=== PATIENT | female | born 1980 | race Caucasian/White ===

== ENCOUNTER 2018-05-24 09:47 | Emergency (ER) | payer OTHER ==
[2018-05-24 10:06] VITALS: TEMP 98.3
[2018-05-24] MEDS ORDERED: KETOROLAC 30 MG/ML 1 ML VIAL IVP STA (10:15)
[2018-05-24] MEDS ORDERED: DEXAMETHASONE SOD PHOSPHATE 10 MG/ML 1 ML VIAL IV STA (10:15)
[2018-05-24] MEDS ORDERED: SODIUM CHLORIDE 0.9% 2,000 ML IV ONE (10:15)
[2018-05-24] MEDS ORDERED: METOCLOPRAMIDE 5 MG/ML 2 ML VIAL IVP STA (10:15)
[2018-05-24] MEDS ORDERED: diphenhydrAMINE 50 MG/ML 1 ML VIAL IVP STA (10:15)
--- NOTE | 2018-05-24 10:22 | ED ---
General Adult HPI - General Chief complaint: Headache Stated complaint: migraine, vomiting Time Seen by Provider: 05/24/18 10:08 Source: patient Mode of arrival: wheelchair Limitations: no limitations - History of Present Illness Initial comments: Patient is a 37-year-old female who presents with a chief complaint of a headache. Patient states the onset was yesterday. She states she has a history of migraine headaches and that this is a typical migraine pattern for her. She felt an aura last night and her headache continued to get worse. She presents today for 10 out of 10 pain and vomiting. Patient states that she typically gets migraine headaches about 2 or 3 times a month. Patient denies any other cause of her headache including trauma, infection. She denies any loss of balance, passing out, or lightheadedness. She has a medical history of asthma, and smokes a pack a day. Review of Systems ROS Statement: Those systems with pertinent positive or pertinent negative responses have been documented in the HPI. ROS Other: All systems not noted in ROS Statement are negative. Respiratory: Reports: wheezes Neurological: Reports: headache Past Medical History Past Medical History: No Reported History History of Any Multi-Drug Resistant Organisms: None Reported Past Surgical History: No Surgical Hx Reported Past Psychological History: No Psychological Hx Reported Smoking Status: Current every day smoker Past Alcohol Use History: None Reported Past Drug Use History: None Reported General Exam Limitations: no limitations General appearance: alert, other (Patient in mild distress secondary to pain) Head exam: Present: atraumatic, normocephalic Eye exam: Present: normal appearance, PERRL, EOMI. Absent: scleral icterus ENT exam: Present: normal exam Neck exam: Present: full ROM. Absent: tenderness, meningismus, lymphadenopathy Respiratory exam: Present: wheezes, other (Patient has mild wheezes bilaterally , she has a history of asthma, she is in no respiratory distress, and states that she feels her asthma is baseline for her currently.) Cardiovascular Exam: Present: regular rate, normal rhythm GI/Abdominal exam: Present: soft, tenderness (Patient has mild tenderness to palpation in the epigastric region and suprapubic region.). Absent: distended, guarding, pulsatile mass Rectal exam: Present: deferred Extremities exam: Present: normal inspection Back exam: Present: normal inspection Neurological exam: Present: alert, oriented X3 Psychiatric exam: Present: normal affect, normal mood Skin exam: Present: warm, dry, intact Course Vital Signs 05/24/18 10:02 Temperature 98.3 F Pulse Rate 114 H Respiratory 22 Rate Blood Pressure 126/74 O2 Sat by Pulse 98 Oximetry Medical Decision Making - Medical Decision Making Patient presents with chief complaint of a headache. On initial evaluation, vital signs are stable patient is mildly tachycardic. Patient is otherwise in no distress. Patient states that she is having a typical migraine, she denies other causes of headache. Patient is neurologically intact and able to ambulate without assistance. Patient to be treated with Toradol, Reglan, Benadryl, Decadron, and IV fluids. Basic labs will be checked including liver profile and lipase, and test. 12:32 PM On reevaluation, the patient states that her headache has resolved. Patient will get the remainder of her IV fluids and is stable for discharge. Patient instructed to follow up with primary care 1-2 days, return to the emergency department if symptoms worsen or change. - Lab Data Result diagrams: 05/24/18 10:20 05/24/18 10:20 Lab Results 05/24/18 05/24/18 05/24/18 Range/Units 10:20 10:20 10:20 WBC 10.7 H (3.8-10.6) k/uL RBC 4.96 (3.80-5.40) m/uL Hgb 14.1 (11.4-16.0) gm/dL Hct 43.0 (34.0-46.0) % MCV 86.7 (80.0-100.0) fL MCH 28.5 (25.0-35.0) pg MCHC 32.9 (31.0-37.0) g/dL RDW 13.7 (11.5-15.5) % Plt Count 276 (150-450) k/uL Neutrophils % 76 % Lymphocytes % 17 % Monocytes % 4 % Eosinophils % 2 % Basophils % 1 % Neutrophils # 8.1 H (1.3-7.7) k/uL Lymphocytes # 1.8 (1.0-4.8) k/uL Monocytes # 0.4 (0-1.0) k/uL Eosinophils # 0.3 (0-0.7) k/uL Basophils # 0.1 (0-0.2) k/uL Sodium 144 (137-145) mmol/L Potassium 4.3 (3.5-5.1) mmol/L Chloride 107 (98-107) mmol/L Carbon Dioxide 22 (22-30) mmol/L Anion Gap 15 mmol/L BUN 10 (7-17) mg/dL Creatinine 0.57 (0.52-1.04) mg/dL Est GFR (CKD-EPI)AfAm >90 (>60 ml/min/1.73 sqM) Est GFR (CKD-EPI)NonAf >90 (>60 ml/min/1.73 sqM) Glucose 115 H (74-99) mg/dL Calcium 9.5 (8.4-10.2) mg/dL Total Bilirubin 0.3 (0.2-1.3) mg/dL AST 61 H (14-36) U/L ALT 78 H (9-52) U/L Alkaline Phosphatase 71 (38-126) U/L Total Protein 7.5 (6.3-8.2) g/dL Albumin 4.3 (3.5-5.0) g/dL Lipase 33 (23-300) U/L HCG, Qual Not Detected Urine Color Yellow Urine Appearance Cloudy H (Clear) Urine pH 5.5 (5.0-8.0) Ur Specific [place] 1.012 (1.001-1.035) Urine Protein Trace H (Negative) Urine Glucose (UA) Negative (Negative) Urine Ketones Negative (Negative) Urine Blood Negative (Negative) Urine Nitrite Negative (Negative) Urine Bilirubin Negative (Negative) Urine Urobilinogen <2.0 (<2.0) mg/dL Ur Leukocyte Esterase Large H (Negative) Urine RBC 4 (0-5) /hpf Urine WBC 14 H (0-5) /hpf Ur Squamous Epith Cells 33 H (0-4) /hpf Urine Bacteria Occasional H (None) /hpf Urine Mucus Few H (None) /hpf Disposition Clinical Impression: Migraine Disposition: HOME SELF-CARE Condition: Good Instructions: Acute Headache (ED) Is patient prescribed a controlled substance at d/c from ED?: No Referrals: Keith Boudreaux MD [Primary Care Provider] - 1-2 days
[2018-05-24 11:07] LABS: Appearance,Urine Cloudy (Clear); Bacteria,Urine Occasional /hpf; Bilirubin,Urine Negative (Negative); Blood,Urine Negative (Negative); Color,Urine Yellow; Glucose,Urine (UA) Negative (Negative); Ketones,Urine Negative (Negative); Leukocyte Esterase,Urine Large (Negative); Mucus,Urine Few /hpf; Nitrite,Urine Negative (Negative); PH, Urine 5.5 (5.0-8.0); Protein,Urine Trace (Negative); RBC,Urine 4 /hpf (0-5); Specific Gravity,Urine 1.012 (1.001-1.035); Squamous Epithelial Cell,Urine 33 /hpf (0-4); Urobilinogen,Urine <2.0 mg/dL (<2.0); WBC,Urine 14 /hpf (0-5)
[2018-05-24 11:10] LABS: Basophils # (A) 0.1 k/uL (0-0.2); Basophils % (A) 1 %; Eosinophils # (A) 0.3 k/uL (0-0.7); Eosinophils % (A) 2 %; HGB 14.1 gm/dL (11.4-16.0); Lymphocytes # (A) 1.8 k/uL (1.0-4.8); Lymphocytes % (A) 17 %; MCH 28.5 pg (25.0-35.0); MCHC 32.9 g/dL (31.0-37.0); MCV 86.7 fL (80.0-100.0); Mean Platelet Volume 6.8; Monocytes # (A) 0.4 k/uL (0-1.0); Monocytes % (A) 4 %; Neutrophils # (A) 8.1 k/uL (1.3-7.7); Neutrophils % (A) 76 %; Platelet Count 276 k/uL (150-450); RBC 4.96 m/uL (3.80-5.40); RDW 13.7 % (11.5-15.5); WBC 10.7 k/uL (3.8-10.6)
[2018-05-24 11:17] LABS: HCG,Qualitative Serum Not Detected
[2018-05-24 11:19] LABS: ALT 78 U/L (9-52); AST 61 U/L (14-36); Albumin 4.3 g/dL (3.5-5.0); Alkaline Phosphatase 71 U/L (38-126); Anion Gap 15 mmol/L; Blood Urea Nitrogen 10 mg/dL (7-17); Calcium 9.5 mg/dL (8.4-10.2); Carbon Dioxide 22 mmol/L (22-30); Chloride 107 mmol/L (98-107); Glucose 115 mg/dL (74-99); Lipase 33 U/L (23-300); Potassium 4.3 mmol/L (3.5-5.1); Sodium 144 mmol/L (137-145); Total Bilirubin 0.3 mg/dL (0.2-1.3); Total Protein 7.5 g/dL (6.3-8.2)
[2018-05-24 12:48] VITALS: RESP 16
[2018-05-24 12:50] VITALS: BP 132/79; PULSE 89
== END 2018-05-24 12:45 | disposition home or self-care (01) ==
LOC: EC 09:47
DX: G43.909 Migraine, unspecified, not intractable, without status migrainosus (principal); R00.0 Tachycardia, unspecified; F17.210 Nicotine dependence, cigarettes, uncomplicated
CPT/HCPCS: 36415; 80053; 83690; 85025; 81001; 84703; 87086; 99283; 96374; 96375 ×3; 96361; J1200; J1100; J2765; J1885

== ENCOUNTER 2018-11-02 20:58 | Emergency (ER) | payer OTHER ==
[2018-11-02 21:19] VITALS: TEMP 98.4
[2018-11-02] MEDS ORDERED: SODIUM CHLORIDE 0.9% 1,000 ML IV STA (21:55)
[2018-11-02] MEDS ORDERED: IPRATROPIUM-ALBUTEROL 3 ML NEB INHALATION STA (21:55)
[2018-11-02 22:06] LABS: Basophils # (A) 0.1 k/uL (0-0.2); Basophils % (A) 1 %; Eosinophils # (A) 0.2 k/uL (0-0.7); Eosinophils % (A) 1 %; HCT 46.9 % (34.0-46.0); HGB 15.7 gm/dL (11.4-16.0); Lymphocytes # (A) 2.7 k/uL (1.0-4.8); Lymphocytes % (A) 20 %; MCH 28.2 pg (25.0-35.0); MCHC 33.5 g/dL (31.0-37.0); MCV 84.2 fL (80.0-100.0); Mean Platelet Volume 7.9; Monocytes # (A) 0.3 k/uL (0-1.0); Monocytes % (A) 3 %; Neutrophils # (A) 9.9 k/uL (1.3-7.7); Neutrophils % (A) 74 %; Platelet Count 293 k/uL (150-450); RBC 5.57 m/uL (3.80-5.40); WBC 13.3 k/uL (3.8-10.6)
[2018-11-02 22:15] LABS: ALT 43 U/L (9-52); AST 42 U/L (14-36); Albumin 5.5 g/dL (3.5-5.0); Alkaline Phosphatase 72 U/L (38-126); Anion Gap 19 mmol/L; Blood Urea Nitrogen 14 mg/dL (7-17); Calcium 10.3 mg/dL (8.4-10.2); Carbon Dioxide 20 mmol/L (22-30); Chloride 106 mmol/L (98-107); Glucose 151 mg/dL (74-99); Sodium 145 mmol/L (137-145); Total Bilirubin 0.8 mg/dL (0.2-1.3); Total Protein 9.8 g/dL (6.3-8.2)
[2018-11-02 22:17] LABS: Magnesium 1.6 mg/dL (1.6-2.3)
[2018-11-02 22:19] LABS: Creatine Kinase 52 U/L (30-135)
[2018-11-02] MEDS ORDERED: diphenhydrAMINE 50 MG/ML 1 ML VIAL IVP STA (22:26)
[2018-11-02] MEDS ORDERED: METOCLOPRAMIDE 5 MG/ML 2 ML VIAL IVP STA (22:26)
[2018-11-02 22:32] LABS: Creatine Kinase MB <0.2 ng/mL (0.0-2.4); Troponin I <0.012 ng/mL (0.000-0.034)
[2018-11-02 22:33] LABS: INR 0.9 (<1.2); Partial Thromboplastin Time 22.3 sec (22.0-30.0)
--- NOTE | 2018-11-02 23:11 | CT ---
EXAM: CT Head Without Intravenous Contrast CLINICAL HISTORY: ITS.REASON CT Reason: headache after smoking crack cocaine TECHNIQUE: Axial computed tomography images of the head/brain without intravenous contrast. CTDI is 49.1 mGy and DLP is 1087 mGy-cm. This CT exam was performed using one or more of the following dose reduction techniques: automated exposure control, adjustment of the mA and/or kV according to patient size, and/or use of iterative reconstruction technique. COMPARISON: None FINDINGS: Brain: Unremarkable. No hemorrhage. No significant white matter disease. No edema. Ventricles: Unremarkable. No ventriculomegaly. Bones/joints: Unremarkable. No acute fracture. Soft tissues: Unremarkable. Sinuses: Mild mucosal thickening in the maxillary and ethmoid sinuses. Mastoid air cells: Unremarkable as visualized. No mastoid effusion. IMPRESSION: No intracranial hemorrhage or other acute intracranial abnormality.
--- NOTE | 2018-11-02 23:12 | XR ---
EXAM: XR Chest, 2 Views CLINICAL HISTORY: ITS.REASON XR Reason: difficulty breathing TECHNIQUE: Frontal and lateral views of the chest. COMPARISON: Chest radiographs 03/04/2018. FINDINGS: Lungs: Unremarkable. No consolidation. Pleural space: Unremarkable. No pneumothorax. Heart: Unremarkable. No cardiomegaly. Mediastinum: Unremarkable. Bones/joints: Unremarkable. IMPRESSION: No acute cardiopulmonary abnormality.
[2018-11-02 23:17] VITALS: BP 130/72; PULSE 107; RESP 16
[2018-11-02] MEDS ORDERED: KETOROLAC 30 MG/ML 1 ML VIAL IVP STA (23:36)
[2018-11-02] MEDS ORDERED: SODIUM CHLORIDE 0.9% 1,000 ML IV ONE (23:36)
--- NOTE | 2018-11-03 00:04 | ED ---
Headache HPI - General Chief Complaint: Headache Stated Complaint: Migraine/vomiting Time Seen by Provider: 11/02/18 21:25 Mode of arrival: ambulatory Limitations: no limitations - History of Present Illness Initial Comments: Christina is an obese 37-year-old female presents the emergency department today for evaluation of headache, nausea, vomiting and asthma attack. Patient did report that she had smoked some crack cocaine earlier in the day. Subsequently feels as though she is having an asthma attack and is having a migraine. Patient reports she cannot stop vomiting. - Related Data Home Medications Medication Instructions Recorded Confirmed No Known Home Medications 07/24/18 07/24/18 Allergies Allergy/AdvReac Type Severity Reaction Status Date / Time No Known Allergies Allergy Verified 11/02/18 21:19 Review of Systems ROS Statement: Those systems with pertinent positive or pertinent negative responses have been documented in the HPI. ROS Other: All systems not noted in ROS Statement are negative. Past Medical History Past Medical History: Asthma Additional Past Medical History / Comment(s): migraines History of Any Multi-Drug Resistant Organisms: None Reported Past Surgical History: No Surgical Hx Reported Past Psychological History: No Psychological Hx Reported Smoking Status: Current every day smoker Past Alcohol Use History: Occasional Past Drug Use History: Methamphetamine General Exam - General Exam Comments Initial Comments: Physical Exam GENERAL: Appears uncomfortable, vomiting into a basin HENT: Normocephalic, Atraumatic. EYES: PERRL, EOMI PULMONARY: Tachypneic but vomiting CARDIOVASCULAR: Tachycardic ABDOMEN: Obese SKIN: Skin is clear with no lesions or rashes and otherwise unremarkable. : Deferred NEUROLOGIC: Patient is alert and oriented x3. Moving all extremities spontaneously Normal gait MUSCULOSKELETAL: No obvious deformities PSYCHIATRIC: Agitated, frustrated feeling ill Limitations: no limitations Limitations: no limitations Course Vital Signs 11/02/18 11/02/18 11/02/18 21:16 22:14 22:21 Temperature 98.4 F Pulse Rate 120 H 80 88 Respiratory 18 Rate Blood Pressure 154/104 O2 Sat by Pulse 96 Oximetry 11/02/18 11/03/18 23:16 00:00 Temperature Pulse Rate 107 H Respiratory 16 16 Rate Blood Pressure 130/72 O2 Sat by Pulse 97 Oximetry Medical Decision Making - Medical Decision Making The patient was seen and evaluated history was obtained from the patient Breathing treatment labs and CT of the head were ordered as well as antiemetics , Reglan and Benadryl for headache and IV fluids Patient had persistent headache after Reglan and Benadryl though her nausea and vomiting resolved completely computed tomography scan of the head was reviewed and it revealed no acute pathology at which time Toradol was ordered. Patient did received IV fluids. Patient reported to the nurse that she is feeling much better she had called for right home and needed to leave. When I went to the room to reevaluate the patient she had left the emergency department. - Lab Data Result diagrams: 11/02/18 21:40 11/02/18 21:40 Lab Results 11/02/18 11/02/18 11/02/18 Range/Units 21:40 21:40 21:40 WBC 13.3 H (3.8-10.6) k/uL RBC 5.57 H (3.80-5.40) m/uL Hgb 15.7 (11.4-16.0) gm/dL Hct 46.9 H (34.0-46.0) % MCV 84.2 (80.0-100.0) fL MCH 28.2 (25.0-35.0) pg MCHC 33.5 (31.0-37.0) g/dL RDW 14.0 (11.5-15.5) % Plt Count 293 (150-450) k/uL Neutrophils % 74 % Lymphocytes % 20 % Monocytes % 3 % Eosinophils % 1 % Basophils % 1 % Neutrophils # 9.9 H (1.3-7.7) k/uL Lymphocytes # 2.7 (1.0-4.8) k/uL Monocytes # 0.3 (0-1.0) k/uL Eosinophils # 0.2 (0-0.7) k/uL Basophils # 0.1 (0-0.2) k/uL PT (9.0-12.0) sec INR (<1.2) APTT (22.0-30.0) sec Sodium 145 (137-145) mmol/L Potassium 6.0 H (3.5-5.1) mmol/L Chloride 106 (98-107) mmol/L Carbon Dioxide 20 L (22-30) mmol/L Anion Gap 19 mmol/L BUN 14 (7-17) mg/dL Creatinine 0.59 (0.52-1.04) mg/dL Est GFR (CKD-EPI)AfAm >90 (>60 ml/min/1.73 sqM) Est GFR (CKD-EPI)NonAf >90 (>60 ml/min/1.73 sqM) Glucose 151 H (74-99) mg/dL Calcium 10.3 H (8.4-10.2) mg/dL Magnesium 1.6 (1.6-2.3) mg/dL Total Bilirubin 0.8 (0.2-1.3) mg/dL AST 42 H (14-36) U/L ALT 43 (9-52) U/L Alkaline Phosphatase 72 (38-126) U/L Total Creatine Kinase 52 (30-135) U/L CK-MB (CK-2) <0.2 (0.0-2.4) ng/mL CK-MB (CK-2) Rel Index Troponin I <0.012 (0.000-0.034) ng/mL Total Protein 9.8 H (6.3-8.2) g/dL Albumin 5.5 H (3.5-5.0) g/dL 11/02/18 Range/Units 21:40 WBC (3.8-10.6) k/uL RBC (3.80-5.40) m/uL Hgb (11.4-16.0) gm/dL Hct (34.0-46.0) % MCV (80.0-100.0) fL MCH (25.0-35.0) pg MCHC (31.0-37.0) g/dL RDW (11.5-15.5) % Plt Count (150-450) k/uL Neutrophils % % Lymphocytes % % Monocytes % % Eosinophils % % Basophils % % Neutrophils # (1.3-7.7) k/uL Lymphocytes # (1.0-4.8) k/uL Monocytes # (0-1.0) k/uL Eosinophils # (0-0.7) k/uL Basophils # (0-0.2) k/uL PT 10.0 (9.0-12.0) sec INR 0.9 (<1.2) APTT 22.3 (22.0-30.0) sec Sodium (137-145) mmol/L Potassium (3.5-5.1) mmol/L Chloride (98-107) mmol/L Carbon Dioxide (22-30) mmol/L Anion Gap mmol/L BUN (7-17) mg/dL Creatinine (0.52-1.04) mg/dL Est GFR (CKD-EPI)AfAm (>60 ml/min/1.73 sqM) Est GFR (CKD-EPI)NonAf (>60 ml/min/1.73 sqM) Glucose (74-99) mg/dL Calcium (8.4-10.2) mg/dL Magnesium (1.6-2.3) mg/dL Total Bilirubin (0.2-1.3) mg/dL AST (14-36) U/L ALT (9-52) U/L Alkaline Phosphatase (38-126) U/L Total Creatine Kinase (30-135) U/L CK-MB (CK-2) (0.0-2.4) ng/mL CK-MB (CK-2) Rel Index Troponin I (0.000-0.034) ng/mL Total Protein (6.3-8.2) g/dL Albumin (3.5-5.0) g/dL Disposition Clinical Impression: Headache Disposition: Left Against Medical Advice Condition: Good Instructions (If sedation given, give patient instructions): Acute Headache (ED ) Is patient prescribed a controlled substance at d/c from ED?: No Referrals: Keith Boudreaux MD [Primary Care Provider] - 1-2 days
== END 2018-11-03 | disposition left against medical advice (07) ==
LOC: EC 20:58
DX: R51 Headache (principal); R11.2 Nausea with vomiting, unspecified; E66.9 Obesity, unspecified; Z68.30 Body mass index [BMI] 30.0-30.9, adult; J45.909 Unspecified asthma, uncomplicated; F17.200 Nicotine dependence, unspecified, uncomplicated; Z53.29 Procedure and treatment not carried out because of patient's decision for other reasons
CPT/HCPCS: 99284; 96374; 96375 ×2; 96361; 36415; 94640; 80053; 82550; 82553; 83735; 84484; 85025; 85610; 85730; 71046; 70450; J1200; J2765; J1885

== ENCOUNTER 2019-12-25 20:20 | Emergency (ER) | payer OTHER ==
[2019-12-25 20:27] VITALS: TEMP 98.7
[2019-12-25] MEDS ORDERED: SODIUM CHLORIDE 0.9% 1,000 ML IV STA (20:57)
[2019-12-25] MEDS ORDERED: LORazepam 2 MG/ML INJ IV STA (20:59)
--- NOTE | 2019-12-25 21:01 | ED ---
General Adult HPI - General Chief complaint: Recheck/Abnormal Lab/Rx Stated complaint: Fingers cramping Time Seen by Provider: 12/25/19 20:47 Source: patient, RN notes reviewed Mode of arrival: ambulatory Limitations: no limitations - History of Present Illness Initial comments: Patient is a pleasant 39-year-old female presenting to the emergency department with cramping of her hands and feet. Onset of symptoms was yesterday. Patient admits to feeling anxious lately. Patient denies history of similar symptoms previously. Patient denies any weakness. Patient did recently have pneumonia however has been symptom-free for the past 5 days. Patient does admit to occasionally injecting methadone. - Related Data Home Medications Medication Instructions Recorded Confirmed Albuterol Inhaler [Ventolin Hfa 2 puff INHALATION RT-QID PRN 12/25/19 12/25/19 Inhaler] Amoxic-Pot Clav 875-125Mg 1 tab PO BID 12/25/19 12/25/19 [Augmentin 875-125] Butalb/APAP/Caff 50-325-40Mg 1 tab PO BID PRN 12/25/19 12/25/19 [Fioricet 50-325-40] Ergocalciferol [Vitamin D2] 50,000 unit PO Q30D 12/25/19 12/25/19 Fluticasone/Salmeterol 2 puff INHALATION RT-BID 12/25/19 12/25/19 [Fluticasone-Salmeterol 113-14] Gabapentin 600 mg PO TID 12/25/19 12/25/19 Ibuprofen [Motrin] 800 mg PO QID PRN 12/25/19 12/25/19 Insulin Glargine,Hum.rec.anlog 10 unit SQ DAILY 12/25/19 12/25/19 [Basaglar Kwikpen U-100] Insulin Lispro [Admelog] 10 units SQ DAILY 12/25/19 12/25/19 Ipratropium-Albuterol Nebulize 3 ml INHALATION RT-QID 12/25/19 12/25/19 [Duoneb 0.5 mg-3 mg/3 ml Soln] Loratadine-Pseudoeph 10-240 mg 1 tab PO DAILY 12/25/19 12/25/19 [Claritin-D 24 Hour] Montelukast [Singulair] 10 mg PO DAILY 12/25/19 12/25/19 Semaglutide [Ozempic] 0.25 mg SQ Q7D 12/25/19 12/25/19 Triamcinolone Acetonide [Nasacort] 1 spray EA NOSTRIL DAILY 12/25/19 12/25/19 glipiZIDE [Glucotrol] 10 mg PO AC-BID 12/25/19 12/25/19 metFORMIN HCL 1,000 mg PO DAILY 12/25/19 12/25/19 Allergies Allergy/AdvReac Type Severity Reaction Status Date / Time No Known Allergies Allergy Verified 12/25/19 21:18 Review of Systems ROS Statement: Those systems with pertinent positive or pertinent negative responses have been documented in the HPI. ROS Other: All systems not noted in ROS Statement are negative. Constitutional: Denies: fever Eyes: Denies: eye pain ENT: Denies: ear pain Respiratory: Denies: dyspnea Cardiovascular: Denies: chest pain Endocrine: Denies: fatigue Gastrointestinal: Denies: abdominal pain Genitourinary: Denies: dysuria Musculoskeletal: Denies: back pain Skin: Denies: rash Neurological: Denies: weakness Psychiatric: Reports: anxiety Past Medical History Past Medical History: Asthma Additional Past Medical History / Comment(s): migraines History of Any Multi-Drug Resistant Organisms: None Reported Past Surgical History: No Surgical Hx Reported Past Psychological History: No Psychological Hx Reported Smoking Status: Current every day smoker Past Alcohol Use History: Occasional Past Drug Use History: Methamphetamine General Exam Limitations: no limitations General appearance: alert, in no apparent distress Head exam: Present: normocephalic Eye exam: Present: normal appearance, PERRL, EOMI ENT exam: Present: normal oropharynx Neck exam: Present: normal inspection Respiratory exam: Present: normal lung sounds bilaterally Cardiovascular Exam: Present: regular rate, normal rhythm GI/Abdominal exam: Present: soft. Absent: tenderness Extremities exam: Present: normal inspection Neurological exam: Present: alert, CN II-XII intact. Absent: motor sensory deficit Psychiatric exam: Present: anxious (Patient is mildly anxious) Skin exam: Present: other (Track armstrong bilateral upper extremity) Course Vital Signs 12/25/19 12/25/19 12/25/19 20:20 21:16 21:57 Temperature 98.7 F Pulse Rate 132 H 126 H 102 H Respiratory 20 18 Rate Blood Pressure 165/104 131/75 O2 Sat by Pulse 95 99 99 Oximetry Medical Decision Making - Medical Decision Making Patient reevaluated and feeling much better, symptom-free. Patient states she did just finished steroids which could account for her leukocytosis. Patient requests discharge home. - Lab Data Result diagrams: 12/25/19 21:09 12/25/19 21:09 Lab Results 12/25/19 12/25/19 Range/Units 21:09 21:09 WBC 22.3 H (3.8-10.6) k/uL RBC 5.83 H (3.80-5.40) m/uL Hgb 16.0 (11.4-16.0) gm/dL Hct 48.9 H (34.0-46.0) % MCV 83.8 (80.0-100.0) fL MCH 27.4 (25.0-35.0) pg MCHC 32.7 (31.0-37.0) g/dL RDW 13.0 (11.5-15.5) % Plt Count 290 (150-450) k/uL Neutrophils % 84 % Lymphocytes % 10 % Monocytes % 3 % Eosinophils % 1 % Basophils % 1 % Neutrophils # 18.8 H (1.3-7.7) k/uL Lymphocytes # 2.2 (1.0-4.8) k/uL Monocytes # 0.7 (0-1.0) k/uL Eosinophils # 0.2 (0-0.7) k/uL Basophils # 0.2 (0-0.2) k/uL Sodium 134 L (137-145) mmol/L Potassium 5.1 (3.5-5.1) mmol/L Chloride 97 L (98-107) mmol/L Carbon Dioxide 22 (22-30) mmol/L Anion Gap 15 mmol/L BUN 19 H (7-17) mg/dL Creatinine 0.55 (0.52-1.04) mg/dL Est GFR (CKD-EPI)AfAm >90 (>60 ml/min/1.73 sqM) Est GFR (CKD-EPI)NonAf >90 (>60 ml/min/1.73 sqM) Glucose 307 H (74-99) mg/dL Calcium 10.1 (8.4-10.2) mg/dL Total Bilirubin 0.8 (0.2-1.3) mg/dL AST 38 H (14-36) U/L ALT 32 (4-34) U/L Alkaline Phosphatase 115 (38-126) U/L Total Protein 9.0 H (6.3-8.2) g/dL Albumin 5.1 H (3.5-5.0) g/dL Disposition Clinical Impression: Muscle cramp Disposition: HOME SELF-CARE Condition: Stable Instructions (If sedation given, give patient instructions): Muscle Cramp (ED) Additional Instructions: Please follow-up with primary care physician on Saturday. You will need to have repeat blood work done. Return for fever, cough or difficulty in breathing, weakness, worsening or changing symptoms or other concerns. Discontinue injection of substances. Is patient prescribed a controlled substance at d/c from ED?: No Referrals: Andres Blevins MD [Primary Care Provider] - 1-2 days Time of Disposition: 22:34
[2019-12-25 21:34] LABS: Basophils # (A) 0.2 k/uL (0-0.2); Basophils % (A) 1 %; Eosinophils # (A) 0.2 k/uL (0-0.7); Eosinophils % (A) 1 %; HCT 48.9 % (34.0-46.0); Lymphocytes # (A) 2.2 k/uL (1.0-4.8); Lymphocytes % (A) 10 %; MCH 27.4 pg (25.0-35.0); MCHC 32.7 g/dL (31.0-37.0); MCV 83.8 fL (80.0-100.0); Mean Platelet Volume 8.9; Monocytes # (A) 0.7 k/uL (0-1.0); Monocytes % (A) 3 %; Neutrophils # (A) 18.8 k/uL (1.3-7.7); Neutrophils % (A) 84 %; Platelet Count 290 k/uL (150-450); RBC 5.83 m/uL (3.80-5.40); WBC 22.3 k/uL (3.8-10.6)
[2019-12-25 21:44] LABS: ALT 32 U/L (4-34); AST 38 U/L (14-36); African American GFR (CKD) >90 (>60 ml/min/1.73 sqM); Albumin 5.1 g/dL (3.5-5.0); Alkaline Phosphatase 115 U/L (38-126); Anion Gap 15 mmol/L; Blood Urea Nitrogen 19 mg/dL (7-17); Calcium 10.1 mg/dL (8.4-10.2); Carbon Dioxide 22 mmol/L (22-30); Chloride 97 mmol/L (98-107); Glucose 307 mg/dL (74-99); Non-African American GFR(CKD) >90 (>60 ml/min/1.73 sqM); Potassium 5.1 mmol/L (3.5-5.1); Sodium 134 mmol/L (137-145); Total Bilirubin 0.8 mg/dL (0.2-1.3)
[2019-12-25 21:58] VITALS: RESP 18
[2019-12-25 22:47] VITALS: BP 136/68; PULSE 108
== END 2019-12-25 22:48 | disposition home or self-care (01) ==
LOC: EC 20:20
DX: R25.2 Cramp and spasm (principal); J45.909 Unspecified asthma, uncomplicated; F17.200 Nicotine dependence, unspecified, uncomplicated; Z79.51 Long term (current) use of inhaled steroids; Z79.4 Long term (current) use of insulin; Z79.899 Other long term (current) drug therapy
CPT/HCPCS: 36415; 80053; 85025; 99283; 96374; 96361 ×2; J2060

== ENCOUNTER 2021-03-04 15:36 | Emergency (ER) | payer OTHER ==
[2021-03-04 15:44] LABS: Glucose,Whole Blood 73 mg/dL (75-99)
[2021-03-04 15:47] VITALS: RESP 16
[2021-03-04 16:27] LABS: Glucose,Whole Blood 69 mg/dL (75-99)
--- NOTE | 2021-03-04 16:29 | ED ---
General Adult HPI - General Chief complaint: Recheck/Abnormal Lab/Rx Stated complaint: Altered Mental status Time Seen by Provider: 03/04/21 16:18 Source: patient, EMS Mode of arrival: EMS Limitations: no limitations - History of Present Illness Initial comments: Dictation was produced using [employer] dictation software. please excuse any grammatical, word or spelling errors. Chief Complaint: 40-year-old female presents emergency department for hypoglycemia History of Present Illness: 40-year-old [facility]. Patient is an insulin-dependent diabetic. She takes 40 units of NovoLog and 50 units of glargine once daily. She states that she's been on this medication dosing for approximately 6 months. She has not had any issues. However recently she has been hurting much more calories and usual. They just moved into a new house and she has been working on his house nonstop. Today she took her insulin for at the and then went she went to work she started to feel diaphoretic and nauseated. EMS was called patient's glucose was 46. The ROS documented in this emergency department record has been reviewed and confirmed by me. Those systems with pertinent positive or negative responses have been documented in the HPI. All other systems are other negative and/or noncontributory. PHYSICAL EXAM: General Impression: Alert and oriented x3, not in acute distress HEENT: Normocephalic atraumatic, extra-ocular movements intact, pupils equal and reactive to light bilaterally, mucous membranes moist. Cardiovascular: Heart regular rate and rhythm Chest: Able to complete full sentences, no retractions, no tachypnea Abdomen: abdomen soft, non-tender, non-distended, no organomegaly Musculoskeletal: Pulses present and equal in all extremities, no peripheral edema Motor: no focal deficits noted Neurological: CN II-XII grossly intact, no focal motor or sensory deficits noted Skin: Intact with no visualized rashes Psych: Normal affect and mood ED course: 40-year-old female presents emergency department for hypoglycemia. Vital Signs upon arrival are within acceptable limits. Patient did not overdose on medications. Likely she is hypoglycemic because she's been much more active in the last couple days and did not eat after taking her insulin. His blood glucose were trended and treated in the emergency department. Her glucose is finally stable. She has a glucometer at home. She is told to monitor symptoms and check her sugars and revive herself dextrose as needed . - Related Data Home Medications Medication Instructions Recorded Confirmed Albuterol Inhaler [Ventolin Hfa 2 puff INHALATION RT-QID PRN 12/25/19 12/25/19 Inhaler] Amoxic-Pot Clav 875-125Mg 1 tab PO BID 12/25/19 12/25/19 [Augmentin 875-125] Butalb/APAP/Caff 50-325-40Mg 1 tab PO BID PRN 12/25/19 12/25/19 [Fioricet 50-325-40] Ergocalciferol [Vitamin D2] 50,000 unit PO Q30D 12/25/19 12/25/19 Fluticasone/Salmeterol 2 puff INHALATION RT-BID 12/25/19 12/25/19 [Fluticasone-Salmeterol 113-14] Gabapentin 600 mg PO TID 12/25/19 12/25/19 Ibuprofen [Motrin] 800 mg PO QID PRN 12/25/19 12/25/19 Insulin Glargine,Hum.rec.anlog 10 unit SQ DAILY 12/25/19 12/25/19 [Basaglar Kwikpen U-100] Insulin Lispro [Admelog] 10 units SQ DAILY 12/25/19 12/25/19 Ipratropium-Albuterol Nebulize 3 ml INHALATION RT-QID 12/25/19 12/25/19 [Duoneb 0.5 mg-3 mg/3 ml Soln] Loratadine-Pseudoeph 10-240 mg 1 tab PO DAILY 12/25/19 12/25/19 [Claritin-D 24 Hour] Montelukast [Singulair] 10 mg PO DAILY 12/25/19 12/25/19 Semaglutide [Ozempic] 0.25 mg SQ Q7D 12/25/19 12/25/19 Triamcinolone Acetonide [Nasacort] 1 spray EA NOSTRIL DAILY 12/25/19 12/25/19 glipiZIDE [Glucotrol] 10 mg PO AC-BID 12/25/19 12/25/19 metFORMIN HCL 1,000 mg PO DAILY 12/25/19 12/25/19 Allergies Allergy/AdvReac Type Severity Reaction Status Date / Time No Known Allergies Allergy Verified 03/04/21 15:48 Review of Systems ROS Statement: Those systems with pertinent positive or pertinent negative responses have been documented in the HPI. ROS Other: All systems not noted in ROS Statement are negative. Past Medical History Past Medical History: Asthma, Diabetes Mellitus Additional Past Medical History / Comment(s): migraines History of Any Multi-Drug Resistant Organisms: None Reported Past Surgical History: No Surgical Hx Reported Additional Past Surgical History / Comment(s): hx of IV drug use Past Psychological History: No Psychological Hx Reported Smoking Status: Current every day smoker Past Alcohol Use History: None Reported Past Drug Use History: Methamphetamine General Exam Limitations: no limitations Course Vital Signs 03/04/21 03/04/21 15:43 17:34 Temperature 97.6 F 98.1 F Pulse Rate 83 78 Respiratory 16 16 Rate Blood Pressure 148/71 120/88 O2 Sat by Pulse 97 96 Oximetry Medical Decision Making - Lab Data Result diagrams: 03/04/21 16:33 03/04/21 16:33 Lab Results 03/04/21 03/04/21 03/04/21 Range/Units 15:43 16:19 16:33 WBC 11.4 H (3.8-10.6) k/uL RBC 5.36 (3.80-5.40) m/uL Hgb 14.3 (11.4-16.0) gm/dL Hct 43.5 (34.0-46.0) % MCV 81.1 (80.0-100.0) fL MCH 26.7 (25.0-35.0) pg MCHC 32.9 (31.0-37.0) g/dL RDW 13.7 (11.5-15.5) % Plt Count 253 (150-450) k/uL MPV 8.7 Neutrophils % 79 % Lymphocytes % 14 % Monocytes % 4 % Eosinophils % 1 % Basophils % 1 % Neutrophils # 9.0 H (1.3-7.7) k/uL Lymphocytes # 1.6 (1.0-4.8) k/uL Monocytes # 0.5 (0-1.0) k/uL Eosinophils # 0.2 (0-0.7) k/uL Basophils # 0.1 (0-0.2) k/uL Sodium (137-145) mmol/L Potassium (3.5-5.1) mmol/L Chloride (98-107) mmol/L Carbon Dioxide (22-30) mmol/L Anion Gap mmol/L BUN (7-17) mg/dL Creatinine (0.52-1.04) mg/dL Est GFR (CKD-EPI)AfAm (>60 ml/min/1.73 sqM) Est GFR (CKD-EPI)NonAf (>60 ml/min/1.73 sqM) Glucose (74-99) mg/dL POC Glucose (mg/dL) 73 L 69 L (75-99) mg/dL POC Glu Plasma Center Nurse ID Claudia Sandovalmarleny Demetria Calcium (8.4-10.2) mg/dL 03/04/21 03/04/21 Range/Units 16:33 17:31 WBC (3.8-10.6) k/uL RBC (3.80-5.40) m/uL Hgb (11.4-16.0) gm/dL Hct (34.0-46.0) % MCV (80.0-100.0) fL MCH (25.0-35.0) pg MCHC (31.0-37.0) g/dL RDW (11.5-15.5) % Plt Count (150-450) k/uL MPV Neutrophils % % Lymphocytes % % Monocytes % % Eosinophils % % Basophils % % Neutrophils # (1.3-7.7) k/uL Lymphocytes # (1.0-4.8) k/uL Monocytes # (0-1.0) k/uL Eosinophils # (0-0.7) k/uL Basophils # (0-0.2) k/uL Sodium 140 (137-145) mmol/L Potassium 3.9 (3.5-5.1) mmol/L Chloride 105 (98-107) mmol/L Carbon Dioxide 25 (22-30) mmol/L Anion Gap 10 mmol/L BUN 13 (7-17) mg/dL Creatinine 0.41 L (0.52-1.04) mg/dL Est GFR (CKD-EPI)AfAm >90 (>60 ml/min/1.73 sqM) Est GFR (CKD-EPI)NonAf >90 (>60 ml/min/1.73 sqM) Glucose 68 L (74-99) mg/dL POC Glucose (mg/dL) 128 H (75-99) mg/dL POC Glu Plasma Center Nurse ID Demetria Encarnacion Calcium 9.2 (8.4-10.2) mg/dL Disposition Clinical Impression: Hypoglycemia Disposition: HOME SELF-CARE Condition: Fair Instructions (If sedation given, give patient instructions): Hypoglycemia in a Person with Diabetes (ED) Is patient prescribed a controlled substance at d/c from ED?: No Referrals: Andres Blevins MD [Primary Care Provider] - 1-2 days
[2021-03-04] MEDS ORDERED: DEXTROSE 50% SYRINGE 50 ML IVP STA (16:31)
[2021-03-04 16:57] LABS: African American GFR (CKD) >90 (>60 ml/min/1.73 sqM); Anion Gap 10 mmol/L; Blood Urea Nitrogen 13 mg/dL (7-17); Calcium 9.2 mg/dL (8.4-10.2); Carbon Dioxide 25 mmol/L (22-30); Chloride 105 mmol/L (98-107); Glucose 68 mg/dL (74-99); Non-African American GFR(CKD) >90 (>60 ml/min/1.73 sqM); Potassium 3.9 mmol/L (3.5-5.1); Sodium 140 mmol/L (137-145)
[2021-03-04 17:07] LABS: Basophils # (A) 0.1 k/uL (0-0.2); Basophils % (A) 1 %; Eosinophils # (A) 0.2 k/uL (0-0.7); Eosinophils % (A) 1 %; HCT 43.5 % (34.0-46.0); HGB 14.3 gm/dL (11.4-16.0); Lymphocytes # (A) 1.6 k/uL (1.0-4.8); Lymphocytes % (A) 14 %; MCH 26.7 pg (25.0-35.0); MCHC 32.9 g/dL (31.0-37.0); MCV 81.1 fL (80.0-100.0); Mean Platelet Volume 8.7; Monocytes # (A) 0.5 k/uL (0-1.0); Monocytes % (A) 4 %; Neutrophils % (A) 79 %; Platelet Count 253 k/uL (150-450); RBC 5.36 m/uL (3.80-5.40); RDW 13.7 % (11.5-15.5); WBC 11.4 k/uL (3.8-10.6)
[2021-03-04 17:40] LABS: Glucose,Whole Blood 128 mg/dL (75-99)
[2021-03-04 18:14] LABS: Glucose,Whole Blood 101 mg/dL (75-99)
[2021-03-04 18:28] VITALS: BP 114/76; PULSE 87; TEMP 97.9
[2021-03-04 18:40] LABS: Glucose,Whole Blood 121 mg/dL (75-99)
== END 2021-03-04 18:40 | disposition home or self-care (01) ==
LOC: EC 15:36
DX: E11.649 Type 2 diabetes mellitus with hypoglycemia without coma (principal); F17.200 Nicotine dependence, unspecified, uncomplicated; J45.909 Unspecified asthma, uncomplicated; Z79.4 Long term (current) use of insulin
CPT/HCPCS: 36415; 80048; 85025; 96374; 99285

== ENCOUNTER 2021-08-13 23:05 | Inpatient (IN) | payer OTHER ==
[2021-08-14 00:59] VITALS: RESP 18; TEMP 100.1
[2021-08-14] MEDS ORDERED: MORPHINE SULFATE 4 MG/ML SYRINGE IVP STA (04:11)
[2021-08-14] MEDS ORDERED: SODIUM CHLORIDE 0.9% 1,000 ML IV STA (04:11)
[2021-08-14] MEDS ORDERED: KETOROLAC 30 MG/ML 1 ML VIAL IVP STA (04:11)
[2021-08-14] MEDS ORDERED: SODIUM CHLORIDE 0.9% 500 ML 500 ML IV STA (04:11)
[2021-08-14] MEDS ORDERED: ACETAMINOPHEN TAB 500 MG TAB PO STA (04:11)
[2021-08-14] MEDS ORDERED: ONDANSETRON 4 MG/2 ML VIAL IVP STA (04:11)
[2021-08-14] MEDS ORDERED: DEXAMETHASONE SOD PHOSPHATE 10 MG/ML 1 ML VIAL IVP STA (04:11)
[2021-08-14] MEDS ORDERED: ALBUTEROL HFA INHALER INHALATION STA (04:11)
--- NOTE | 2021-08-14 04:13 | ED ---
Fever HPI - General Chief Complaint: Nausea/Vomiting/Diarrhea Stated Complaint: Covid+,Vomiting Time Seen by Provider: 08/14/21 03:25 Source: patient, RN notes reviewed, old records reviewed Mode of arrival: ambulatory Limitations: no limitations - History of Present Illness Initial Comments: This is a 40-year-old female with asthma and diabetes, no prior vaccination or coronavirus history coming in with fever bodyaches pain shortness of breath with cough and positive coronavirus test. Patient states she does not feel well. His been dry heaving with nausea no vomiting. A she doesn't positive originally on the . Symptoms have been progressive and worsening. Mainly bodyaches pains not feeling well. MD Complaint: fever, malaise, weakness, other (Aches and pains) -: days(s) (5) Temperature Source: subjective Context: sick contacts Associated Symptoms: chills, rigors, myalgias Treatments Prior to Arrival: Acetaminophen, Ibuprofen - Related Data Home Medications Medication Instructions Recorded Confirmed Albuterol Inhaler [Ventolin Hfa 2 puff INHALATION RT-QID PRN 12/25/19 12/25/19 Inhaler] Amoxic-Pot Clav 875-125Mg 1 tab PO BID 12/25/19 12/25/19 [Augmentin 875-125] Butalb/APAP/Caff 50-325-40Mg 1 tab PO BID PRN 12/25/19 12/25/19 [Fioricet 50-325-40] Ergocalciferol [Vitamin D2] 50,000 unit PO Q30D 12/25/19 12/25/19 Fluticasone/Salmeterol 2 puff INHALATION RT-BID 12/25/19 12/25/19 [Fluticasone-Salmeterol 113-14] Gabapentin 600 mg PO TID 12/25/19 12/25/19 Ibuprofen [Motrin] 800 mg PO QID PRN 12/25/19 12/25/19 Insulin Glargine,Hum.rec.anlog 10 unit SQ DAILY 12/25/19 12/25/19 [Basaglar Kwikpen U-100] Insulin Lispro [Admelog] 10 units SQ DAILY 12/25/19 12/25/19 Ipratropium-Albuterol Nebulize 3 ml INHALATION RT-QID 12/25/19 12/25/19 [Duoneb 0.5 mg-3 mg/3 ml Soln] Loratadine-Pseudoeph 10-240 mg 1 tab PO DAILY 12/25/19 12/25/19 [Claritin-D 24 Hour] Montelukast [Singulair] 10 mg PO DAILY 12/25/19 12/25/19 Semaglutide [Ozempic] 0.25 mg SQ Q7D 12/25/19 12/25/19 Triamcinolone Acetonide [Nasacort] 1 spray EA NOSTRIL DAILY 12/25/19 12/25/19 glipiZIDE [Glucotrol] 10 mg PO AC-BID 12/25/19 12/25/19 metFORMIN HCL [Glucophage] 1,000 mg PO DAILY 12/25/19 12/25/19 Allergies Allergy/AdvReac Type Severity Reaction Status Date / Time No Known Allergies Allergy Verified 08/14/21 00:59 Review of Systems ROS Statement: Those systems with pertinent positive or pertinent negative responses have been documented in the HPI. ROS Other: All systems not noted in ROS Statement are negative. Past Medical History Past Medical History: Asthma, Diabetes Mellitus Additional Past Medical History / Comment(s): migraines History of Any Multi-Drug Resistant Organisms: None Reported Past Surgical History: No Surgical Hx Reported Additional Past Surgical History / Comment(s): hx of IV drug use Past Psychological History: No Psychological Hx Reported Smoking Status: Current every day smoker Past Alcohol Use History: None Reported Past Drug Use History: Methamphetamine General Exam Limitations: no limitations General appearance: alert, in no apparent distress, anxious Head exam: Present: atraumatic, normocephalic, normal inspection Eye exam: Present: normal appearance, PERRL, EOMI. Absent: scleral icterus, conjunctival injection, periorbital swelling ENT exam: Present: normal exam, mucous membranes moist Neck exam: Present: normal inspection. Absent: tenderness, meningismus, lympha denopathy Respiratory exam: Present: wheezes, rhonchi, decreased breath sounds, prolonged expiratory. Absent: respiratory distress, rales, stridor Cardiovascular Exam: Present: normal rhythm, tachycardia, normal heart sounds. Absent: systolic murmur, diastolic murmur, rubs, gallop, clicks GI/Abdominal exam: Present: soft, normal bowel sounds. Absent: distended, tenderness, guarding, rebound, rigid Extremities exam: Present: normal inspection, full ROM, normal capillary refill. Absent: tenderness, pedal edema, joint swelling, calf tenderness Back exam: Present: normal inspection Neurological exam: Present: alert, oriented X3, CN II-XII intact Psychiatric exam: Present: normal affect, normal mood Skin exam: Present: warm, dry, intact, normal color. Absent: rash Course Vital Signs 08/14/21 08/14/21 08/14/21 00:51 03:54 07:17 Temperature 100.1 F H Pulse Rate 107 H 96 82 Respiratory 18 18 18 Rate Blood Pressure 112/74 125/82 117/77 O2 Sat by Pulse 92 L 91 L 91 L Oximetry - Reevaluation(s) Reevaluation #1: 08/14/21 07:13 Medical record is reviewed Reevaluation #2: 08/14/21 07:14 Consents to antibody treatment, pulse ox is remaining within normal status Medical Decision Making - Medical Decision Making 40 female to the emergency department today. Patient was about to be started on her region and cold infusion. To evaluate patient in patient had low pulse ox, mid to high 80s. Decision made to admit patient for further evaluation management, supportive care - Lab Data Result diagrams: 08/14/21 04:25 08/14/21 04:25 Lab Results 08/14/21 08/14/21 08/14/21 Range/Units 04:25 04:25 04:25 WBC 7.7 (3.8-10.6) k/uL RBC 5.72 H (3.80-5.40) m/uL Hgb 15.6 (11.4-16.0) gm/dL Hct 46.0 (34.0-46.0) % MCV 80.4 (80.0-100.0) fL MCH 27.2 (25.0-35.0) pg MCHC 33.9 (31.0-37.0) g/dL RDW 13.1 (11.5-15.5) % Plt Count 159 (150-450) k/uL MPV 9.7 Neutrophils % 76 % Lymphocytes % 17 % Monocytes % 4 % Eosinophils % 0 % Basophils % 1 % Neutrophils # 5.9 (1.3-7.7) k/uL Lymphocytes # 1.3 (1.0-4.8) k/uL Monocytes # 0.3 (0-1.0) k/uL Eosinophils # 0.0 (0-0.7) k/uL Basophils # 0.0 (0-0.2) k/uL Sodium 133 L (137-145) mmol/L Potassium 4.2 (3.5-5.1) mmol/L Chloride 94 L (98-107) mmol/L Carbon Dioxide 26 (22-30) mmol/L Anion Gap 13 mmol/L BUN 16 (7-17) mg/dL Creatinine 0.44 L (0.52-1.04) mg/dL Est GFR (CKD-EPI)AfAm >90 (>60 ml/min/1.73 sqM) Est GFR (CKD-EPI)NonAf >90 (>60 ml/min/1.73 sqM) Glucose 299 H (74-99) mg/dL Plasma Lactic Acid Mason 1.3 (0.7-2.0) mmol/L Calcium 8.8 (8.4-10.2) mg/dL Magnesium 1.3 L (1.6-2.3) mg/dL Total Bilirubin 0.4 (0.2-1.3) mg/dL AST 56 H (14-36) U/L ALT 34 (4-34) U/L Alkaline Phosphatase 115 (38-126) U/L Lactate Dehydrogenase 930 H (313-618) U/L C-Reactive Protein 4.9 H (<1.0) mg/dL Total Protein 7.8 (6.3-8.2) g/dL Albumin 4.3 (3.5-5.0) g/dL - EKG Data -: EKG Interpreted by Me (EKG shows sinus rhythm 85, SD 150 QRS 80 QTC 40) - Radiology Data Radiology results: report reviewed (CXR is positive for COVIDpna), image reviewed Disposition Clinical Impression: Coronavirus infection, Pneumonia due to COVID-19 virus, Hypoxia Disposition: ADMITTED IP TO THIS HOSP Condition: Fair Instructions (If sedation given, give patient instructions): Coronavirus Disease 2019 (COVID-19) Is patient prescribed a controlled substance at d/c from ED?: No Referrals: Andres Blevins MD [Primary Care Provider] - 1-2 days
[2021-08-14 06:09] LABS: Basophils % (A) 1 %; Eosinophils % (A) 0 %; HGB 15.6 gm/dL (11.4-16.0); Lymphocytes # (A) 1.3 k/uL (1.0-4.8); Lymphocytes % (A) 17 %; MCH 27.2 pg (25.0-35.0); MCHC 33.9 g/dL (31.0-37.0); MCV 80.4 fL (80.0-100.0); Mean Platelet Volume 9.7; Monocytes # (A) 0.3 k/uL (0-1.0); Monocytes % (A) 4 %; Neutrophils # (A) 5.9 k/uL (1.3-7.7); Neutrophils % (A) 76 %; Platelet Count 159 k/uL (150-450); RBC 5.72 m/uL (3.80-5.40); RDW 13.1 % (11.5-15.5); WBC 7.7 k/uL (3.8-10.6)
[2021-08-14 06:48] LABS: ALT 34 U/L (4-34); AST 56 U/L (14-36); African American GFR (CKD) >90 (>60 ml/min/1.73 sqM); Albumin 4.3 g/dL (3.5-5.0); Alkaline Phosphatase 115 U/L (38-126); Anion Gap 13 mmol/L; Blood Urea Nitrogen 16 mg/dL (7-17); C Reactive Protein 4.9 mg/dL (<1.0); Calcium 8.8 mg/dL (8.4-10.2); Carbon Dioxide 26 mmol/L (22-30); Chloride 94 mmol/L (98-107); Glucose 299 mg/dL (74-99); LDH 930 U/L (313-618); Magnesium 1.3 mg/dL (1.6-2.3); Non-African American GFR(CKD) >90 (>60 ml/min/1.73 sqM); Potassium 4.2 mmol/L (3.5-5.1); Sodium 133 mmol/L (137-145); Total Bilirubin 0.4 mg/dL (0.2-1.3); Total Protein 7.8 g/dL (6.3-8.2)
--- NOTE | 2021-08-14 07:03 | XR ---
EXAM: XR Chest, 1 View CLINICAL HISTORY: ITS.REASON XR Reason: Suspected COVID-19 pneumonia TECHNIQUE: Frontal view of the chest. COMPARISON: 11/02/2018 FINDINGS: Lungs: Subtle scattered subsegmental irregular opacities scattered throughout the lungs with relative sparing of the right upper lung zone. These are new from the previous examination. Pleural space: Unremarkable. No pneumothorax. No large pleural effusion. Heart: The cardiac silhouette is within normal limits, accounting for portable technique. Mediastinum: No significant alteration, accounting for limitations with adjacent airspace disease. The trachea is midline. Bones/joints: Unremarkable. IMPRESSION: Subtle scattered subsegmental irregular opacities scattered throughout the lungs with relative sparing of the right upper lung zone. These are new from the previous examination. Findings are nonspecific but consistent with bilateral viral pneumonia in the setting of reported positive Covid status. No large pleural effusion or pneumothorax.
[2021-08-14 07:19] VITALS: BP 117/77; PULSE 82
[2021-08-14] MEDS ORDERED: MORPHINE SULFATE 4 MG/ML SYRINGE IV PRN (07:32)
[2021-08-14] MEDS ORDERED: LORazepam 2 MG/ML INJ IV PRN (07:32)
[2021-08-14] MEDS ORDERED: NALOXONE 0.4 MG/ML 1 ML VIAL IV PRN (07:32)
== END 2021-08-14 09:30 | disposition left against medical advice (07) | DRG 177 ==
LOC: EC 23:05 → 4SSUR 08-14 07:32
PROVIDERS: ADMIT Hospitalist; ATTEND Hospitalist
DX: U07.1 COVID-19 (principal); J12.82 Pneumonia due to coronavirus disease 2019; E11.9 Type 2 diabetes mellitus without complications; R09.02 Hypoxemia; J45.909 Unspecified asthma, uncomplicated; G43.909 Migraine, unspecified, not intractable, without status migrainosus; F17.210 Nicotine dependence, cigarettes, uncomplicated; Z79.4 Long term (current) use of insulin; Z79.899 Other long term (current) drug therapy
CPT/HCPCS: 36415; 71045; 80053; 83605; 83615; 83735; 85025; 86140; 87040; 93005; 94640; 96361; 96374; 96375; 99285

== ENCOUNTER 2023-03-30 12:57 | Emergency (ER) | payer OTHER ==
[2023-03-30] MEDS ORDERED: LIDOCAINE 2%-EPI 1:100,000 20 ML VIAL SQ STA (13:14)
--- NOTE | 2023-03-30 13:14 | ED ---
General Adult HPI - General Chief complaint: Skin/Abscess/Foreign Body Stated complaint: L knee issue-sent by PCP Time Seen by Provider: 03/30/23 13:04 Source: patient Mode of arrival: ambulatory Limitations: no limitations - History of Present Illness Initial comments: Dictation was produced using [employer] dictation software. please excuse any gramm atical, word or spelling errors. Chief Complaint: 42-year-old female presents emergency Department with persistent left knee wound History of Present Illness: Is a 42-year-old diabetic female she fell one week ago and abrasions to her left knee. She suffered a 1 from that. She went to see her primary care doctor. Neymar doctor prescribed her Keflex. She has been on Keflex for one day. She states that yesterday her symptoms seemed much worse improved today however it's been draining and still symptomatic. Patient denies a fever constitutional symptoms. Denies any knee pain. She is able to ambulate without any consultation. The ROS documented in this emergency department record has been reviewed and confirmed by me. Those systems with pertinent positive or negative responses have been documented in the HPI. All other systems are other negative and/or noncontributory. - Related Data Home Medications Medication Instructions Recorded Confirmed Albuterol Inhaler [Ventolin Hfa 2 puff INHALATION RT-QID PRN 12/25/19 12/25/19 Inhaler] Amoxic-Pot Clav 875-125Mg 1 tab PO BID 12/25/19 12/25/19 [Augmentin 875-125] Butalb/APAP/Caff 50-325-40Mg 1 tab PO BID PRN 12/25/19 12/25/19 [Fioricet 50-325-40] Ergocalciferol [Vitamin D2] 50,000 unit PO Q30D 12/25/19 12/25/19 Fluticasone Propion/Salmeterol 2 puff INHALATION RT-BID 12/25/19 12/25/19 [Fluticasone-Salmeterol 113-14] Gabapentin 600 mg PO TID 12/25/19 12/25/19 Ibuprofen [Motrin] 800 mg PO QID PRN 12/25/19 12/25/19 Insulin Glargine,Hum.rec.anlog 10 unit SQ DAILY 12/25/19 12/25/19 [Basaglar Kwikpen U-100] Insulin Lispro [Admelog] 10 units SQ DAILY 12/25/19 12/25/19 Ipratropium-Albuterol Nebulize 3 ml INHALATION RT-QID 12/25/19 12/25/19 [Duoneb 0.5 mg-3 mg/3 ml Soln] Loratadine-Pseudoeph 10-240 mg 1 tab PO DAILY 12/25/19 12/25/19 [Claritin-D 24 Hour] Montelukast [Singulair] 10 mg PO DAILY 12/25/19 12/25/19 Semaglutide [Ozempic] 0.25 mg SQ Q7D 12/25/19 12/25/19 Triamcinolone Acetonide [Nasacort] 1 spray EA NOSTRIL DAILY 12/25/19 12/25/19 glipiZIDE [Glucotrol] 10 mg PO AC-BID 12/25/19 12/25/19 metFORMIN HCL [Glucophage] 1,000 mg PO DAILY 12/25/19 12/25/19 Previous Rx's Medication Instructions Recorded Sulfamethox-Tmp 800-160Mg [Bactrim 1 tab PO Q12HR 7 Days #14 tab 03/30/23 DS 800-160 mg] Allergies Allergy/AdvReac Type Severity Reaction Status Date / Time No Known Allergies Allergy Verified 03/30/23 13:02 Review of Systems ROS Statement: Those systems with pertinent positive or pertinent negative responses have been documented in the HPI. ROS Other: All systems not noted in ROS Statement are negative. Past Medical History Past Medical History: Asthma, Diabetes Mellitus Additional Past Medical History / Comment(s): migraines History of Any Multi-Drug Resistant Organisms: None Reported Past Surgical History: No Surgical Hx Reported Additional Past Surgical History / Comment(s): hx of IV drug use Past Psychological History: No Psychological Hx Reported Smoking Status: Current every day smoker Past Alcohol Use History: None Reported Past Drug Use History: Methamphetamine General Exam - General Exam Comments Initial Comments: PHYSICAL EXAM: General Impression: Alert and oriented x3, not in acute distress HEENT: Normocephalic atraumatic, extra-ocular movements intact, pupils equal and reactive to light bilaterally, mucous membranes moist. Cardiovascular: Heart regular rate and rhythm Chest: Able to complete full sentences, no retractions, no tachypnea Abdomen: abdomen soft, non-tender, non-distended, no organomegaly Musculoskeletal: Pulses present and equal in all extremities, no peripheral edema Motor: no focal deficits noted Neurological: CN II-XII grossly intact, no focal motor or sensory deficits noted Skin: Intact with no visualized rashes Psych: Normal affect and mood Left knee: Erythematous fluctuant mass measuring 1 x 1 cm over the left medial knee Limitations: no limitations Course Vital Signs 03/30/23 12:58 Temperature 98.5 F Pulse Rate 98 Respiratory 18 Rate Blood Pressure 112/62 O2 Sat by Pulse 96 Oximetry Procedures - Incision & Drainage Consent Obtained: verbal consent Site: other (knee) Anesthetic Used: lidocaine 1%, with epi I&D Cleaning Method: Alcohol Wipe Sterile Field Used?: No Needle Aspiration Performed?: Yes Irrigation Performed?: No I&D Drainage Obtained: Pus, Blood Culture Obtained?: Yes Patient Tolerated Procedure: well Medical Decision Making - Medical Decision Making Was pt. sent in by a medical professional or institution (, PA, END USER CONSULTANT, urgent care, hospital, or [facility]...) When possible be specific @ -No Did you speak to anyone other than the patient for history (EMS, parent, family, police, friend...)? What history was obtained from this source @ -No Did you review nursing and triage notes (agree or disagree)? Why? @ -I reviewed and agree with nursing and triage notes Were old charts reviewed (outside hosp., previous admission, EMS record, old EKG, old radiological studies, urgent care reports/EKG's, [facility] records)? Report findings @ -No old charts were reviewed Differential Diagnosis (chest pain, altered mental status, abdominal pain women, abdominal pain men, vaginal bleeding, musculoskeletal, weakness, fever, dyspnea, syncope, headache, dizziness, GI bleed, back pain, seizure, CVA, palpatations, mental health)? @ -not applicable EKG interpreted by me (3pts min.). @ -None done X-rays interpreted by me (1pt min.). @ -None done CT interpreted by me (1pt min.). @ -None done U/S interpreted by me (1pt. min.). @ -None done What testing was considered but not performed or refused? (CT, X-rays, U/S, labs)? Why? @ -None What meds were considered but not given or refused? Why? @ -None Did you discuss the management of the patient with other professionals (professionals i.e. , PA, END USER CONSULTANT, lab, RT, psych nurse, social sciences research scientist, tip printer, teacher, officer captain, special education case manager)? Give summary @ -No Was smoking cessation discussed for >3mins.? @ -No Was critical care preformed (if so, how long)? @ -No Were there social determinants of health that impacted care today? How? (Homelessness, low income, unemployed, alcoholism, drug addiction, transportation, low edu. Level, literacy, decrease access to med. care, fci, rehab)? @ -No Was there de-escalation of care discussed even if they declined (Discuss DNR or withdrawal of care, Hospice)? DNR status @ -No What co-morbidities impacted this encounter? (DM, HTN, Smoking, COPD, CAD, Cancer, CVA, ARF, Chemo, Hep., AIDS, mental health diagnosis, sleep apnea, morbid obesity)? @ -Diabetes Was patient admitted / discharged? Hospital course, mention meds given and route, prescriptions, significant lab abnormalities, going to OR and other pertinent info. @ -42-year-old female with diabetes presents to the ER for superficial and the infection. Patient not having any pain with ambulation. Denies any fever or constitutional symptoms. Vital signs stable. Aspiration was performed. There was no amounts of purulent fluid drained. Patient tolerated procedure well. Patient given Bactrim to be taken with her Keflex. fluid sample sent for culture for concerns of possible pseudomonas. Patient otherwise will be discharged. Undiagnosed new problem with uncertain prognosis? @ -No Drug Therapy requiring intensive monitoring for toxicity (Heparin, Nitro, Insulin, Cardizem)? @ -No Were any procedures done? @ -see above Diagnosis/symptom? Acute, or Chronic, or Acute on Chronic? Uncomplicated (without systemic symptoms) or Complicated (systemic symptoms)? @ -1. Superficial knee infection Side effects of treatment? @ -No Exacerbation, Progression, or Severe Exacerbation? @ -No Poses a threat to life or bodily function? How? (Chest pain, [place], [place], pneumonia, PE, COPD, DKA, ARF, appy, cholecystitis, CVA, Diverticulitis, Homicidal, Suicidal, threat to staff... and all critical care pts) @ -No Disposition Clinical Impression: Abscess Disposition: HOME SELF-CARE Instructions (If sedation given, give patient instructions): Abscess (ED) Prescriptions: Sulfamethox-Tmp 800-160Mg [Bactrim DS 800-160 mg] 1 tab PO Q12HR 7 Days #14 tab Is patient prescribed a controlled substance at d/c from ED?: No Referrals: Andres Blevins MD [Primary Care Provider] - 1-2 days Time of Disposition: 13:46
[2023-03-30 14:16] VITALS: BP 138/74; PULSE 94; RESP 16; TEMP 98
== END 2023-03-30 14:15 | disposition home or self-care (01) ==
LOC: EC 12:57
DX: L02.416 Cutaneous abscess of left lower limb (principal); E11.9 Type 2 diabetes mellitus without complications; J45.909 Unspecified asthma, uncomplicated; F17.200 Nicotine dependence, unspecified, uncomplicated; F15.10 Other stimulant abuse, uncomplicated; Z79.4 Long term (current) use of insulin; Z79.84 Long term (current) use of oral hypoglycemic drugs; Z79.51 Long term (current) use of inhaled steroids
CPT/HCPCS: 10060; 87070; 87075; 87077; 87186; 87205; 99282

== ENCOUNTER 2023-04-17 08:10 | Emergency (ER) | payer OTHER ==
[2023-04-17 08:31] VITALS: BP 117/81; PULSE 99; RESP 18; TEMP 98.2
[2023-04-17] MEDS ORDERED: KETOROLAC 15 MG/ML 1 ML VIAL IM STA (08:43)
--- NOTE | 2023-04-17 08:45 | ED ---
General Adult HPI - General Chief complaint: Trauma Stated complaint: R side pain Time Seen by Provider: 04/17/23 08:33 Source: patient, RN notes reviewed Mode of arrival: ambulatory Limitations: no limitations - History of Present Illness Initial comments: Patient is a pleasant 42-year-old female presenting to the emergency department with concerns with right rib pain. Onset of symptoms was 1 week ago. Patient was at work leaning over a bathtub when she felt sudden pain in the right ribs. Patient had another episode 3 days ago while cleaning again, making the bed. Patient states discomfort increases at that time. Discomfort does increase with any movement or deep breaths. Patient denies any abdominal pain. No dyspnea. - Related Data Home Medications Medication Instructions Recorded Confirmed Albuterol Inhaler [Ventolin Hfa 2 puff INHALATION RT-QID PRN 12/25/19 12/25/19 Inhaler] Amoxic-Pot Clav 875-125Mg 1 tab PO BID 12/25/19 12/25/19 [Augmentin 875-125] Butalb/APAP/Caff 50-325-40Mg 1 tab PO BID PRN 12/25/19 12/25/19 [Fioricet 50-325-40] Ergocalciferol [Vitamin D2] 50,000 unit PO Q30D 12/25/19 12/25/19 Fluticasone Propion/Salmeterol 2 puff INHALATION RT-BID 12/25/19 12/25/19 [Fluticasone-Salmeterol 113-14] Gabapentin 600 mg PO TID 12/25/19 12/25/19 Ibuprofen [Motrin] 800 mg PO QID PRN 12/25/19 12/25/19 Insulin Glargine,Hum.rec.anlog 10 unit SQ DAILY 12/25/19 12/25/19 [Basaglar Kwikpen U-100] Insulin Lispro [Admelog] 10 units SQ DAILY 12/25/19 12/25/19 Ipratropium-Albuterol Nebulize 3 ml INHALATION RT-QID 12/25/19 12/25/19 [Duoneb 0.5 mg-3 mg/3 ml Soln] Loratadine-Pseudoeph 10-240 mg 1 tab PO DAILY 12/25/19 12/25/19 [Claritin-D 24 Hour] Montelukast [Singulair] 10 mg PO DAILY 12/25/19 12/25/19 Semaglutide [Ozempic] 0.25 mg SQ Q7D 12/25/19 12/25/19 Triamcinolone Acetonide [Nasacort] 1 spray EA NOSTRIL DAILY 12/25/19 12/25/19 glipiZIDE [Glucotrol] 10 mg PO AC-BID 12/25/19 12/25/19 metFORMIN HCL [Glucophage] 1,000 mg PO DAILY 12/25/19 12/25/19 Previous Rx's Medication Instructions Recorded Sulfamethox-Tmp 800-160Mg [Bactrim 1 tab PO Q12HR 7 Days #14 tab 03/30/23 DS 800-160 mg] Allergies Allergy/AdvReac Type Severity Reaction Status Date / Time No Known Allergies Allergy Verified 03/30/23 13:02 Review of Systems ROS Statement: Those systems with pertinent positive or pertinent negative responses have been documented in the HPI. ROS Other: All systems not noted in ROS Statement are negative. Constitutional: Denies: fever Eyes: Denies: eye pain ENT: Denies: ear pain Respiratory: Denies: cough, dyspnea Cardiovascular: Reports: as per HPI Endocrine: Denies: fatigue Gastrointestinal: Denies: abdominal pain Genitourinary: Denies: dysuria Past Medical History Past Medical History: Asthma, Diabetes Mellitus Additional Past Medical History / Comment(s): migraines History of Any Multi-Drug Resistant Organisms: None Reported Past Surgical History: No Surgical Hx Reported Additional Past Surgical History / Comment(s): hx of IV drug use Past Psychological History: No Psychological Hx Reported Smoking Status: Current every day smoker Past Alcohol Use History: None Reported Past Drug Use History: Methamphetamine General Exam Limitations: no limitations General appearance: alert, in no apparent distress Head exam: Present: atraumatic Eye exam: Present: normal appearance Neck exam: Present: normal inspection. Absent: tenderness Respiratory exam: Present: normal lung sounds bilaterally, chest wall tenderness (Minimal right anterior near the area of the breast) Cardiovascular Exam: Present: regular rate, normal rhythm GI/Abdominal exam: Present: soft. Absent: distended, tenderness, guarding, rebound Extremities exam: Present: normal inspection. Absent: pedal edema, calf tenderness Back exam: Present: normal inspection. Absent: tenderness Neurological exam: Present: alert Psychiatric exam: Present: normal affect, normal mood Skin exam: Present: normal color Course Vital Signs 04/17/23 08:28 Temperature 98.2 F Pulse Rate 99 Respiratory 18 Rate Blood Pressure 117/81 O2 Sat by Pulse 97 Oximetry Medical Decision Making - Medical Decision Making Was pt. sent in by a medical professional or institution (, MARIA R, HIDE DROPPER, urgent care, hospital, or [facility]...) When possible be specific @ -No Did you speak to anyone other than the patient for history (EMS, parent, family, police, friend...)? What history was obtained from this source @ -No Did you review nursing and triage notes (agree or disagree)? Why? @ -I reviewed and agree with nursing and triage notes Were old charts reviewed (outside hosp., previous admission, EMS record, old EKG, old radiological studies, urgent care reports/EKG's, [facility] records)? Report findings @ -No old charts were reviewed Differential Diagnosis (chest pain, altered mental status, abdominal pain women, abdominal pain men, vaginal bleeding, weakness, fever, dyspnea, syncope, headache, dizziness, GI bleed, back pain, seizure, CVA, palpatations, mental health, musculoskeletal)? @ -Differential Musculoskeletal Muscular strain, contusion, ligament sprain, fracture, arthritis, septic arthritis, bursitis, cellulitis, muscle spasm, nerve compression, DVT, arterial occlusion, herpes zoster, electrolyte abnormality, tumor.... This is not meant to be in all inclusive list EKG interpreted by me (3pts min.). @ -As above X-rays interpreted by me (1pt min.). @ -Right rib and chest x-ray do not reveal acute abnormality CT interpreted by me (1pt min.). @ -None done U/S interpreted by me (1pt. min.). @ -None done What testing was considered but not performed or refused? (CT, X-rays, U/S, labs)? Why? @ -None What meds were considered but not given or refused? Why? @ -None Did you discuss the management of the patient with other professionals (professionals i.e. MARIA R Feliciano, HIDE DROPPER, lab, RT, psych nurse, rn social work, biopharmaceutical rep, teacher, environmental health officer, community case manager)? Give summary @ -No Was smoking cessation discussed for >3mins.? @ -No Was critical care preformed (if so, how long)? @ -No Were there social determinants of health that impacted care today? How? (Home lessness, low income, unemployed, alcoholism, drug addiction, transportation, low edu. Level, literacy, decrease access to med. care, long-term, rehab)? @ -No Was there de-escalation of care discussed even if they declined (Discuss DNR or withdrawal of care, Hospice)? DNR status @ -No What co-morbidities impacted this encounter? (DM, HTN, Smoking, COPD, CAD, Cancer, CVA, ARF, Chemo, Hep., AIDS, mental health diagnosis, sleep apnea, morbid obesity)? @ -None Was patient admitted / discharged? Hospital course, mention meds given and route, prescriptions, significant lab abnormalities, going to OR and other pertinent info. @ -Patient reevaluated and updated. Patient states she has Motrin 800 at home and use that. Patient does request work no. Undiagnosed new problem with uncertain prognosis? @ -No Drug Therapy requiring intensive monitoring for toxicity (Heparin, Nitro, Insulin, Cardizem)? @ -No Were any procedures done? @ -No Diagnosis/symptom? @ -Chest contusion Acute, or Chronic, or Acute on Chronic? @ -Acute Uncomplicated (without systemic symptoms) or Complicated (systemic symptoms)? @ -default Side effects of treatment? @ -No Exacerbation, Progression, or Severe Exacerbation? @ -No Poses a threat to life or bodily function? How? (Chest pain, [place], [place], pneumonia, PE, COPD, DKA, ARF, appy, cholecystitis, CVA, Diverticulitis, Homicidal, Suicidal, threat to staff... and all critical care pts) @ -No Disposition Clinical Impression: Chest wall contusion Disposition: HOME SELF-CARE Condition: Stable Instructions (If sedation given, give patient instructions): Chest Wall Pain (ED) Additional Instructions: Use Motrin 800 as needed. Please do follow-up to primary care physician in the next couple days for recheck. Return for increased pain, difficulty breathing, worsening or change in symptoms or other concerns. Is patient prescribed a controlled substance at d/c from ED?: No Referrals: Andres Blevins MD [Primary Care Provider] - 1-2 days Time of Disposition: 09:22
--- NOTE | 2023-04-17 09:07 | XR ---
EXAMINATION TYPE: XR ribs RT w pa chest xray DATE OF EXAM: 04/17/2023 9:01 AM INDICATION: Patient age:Female; 42 years old; Reason for study: pain; PH[facility]. COMPARISON: Chest radiograph 08/14/2021 TECHNIQUE: Frontal and oblique views of the right ribs with additional frontal chest radiograph FINDINGS: The ribs have a normal appearance. No evidence of fracture. Overall, the lungs are clear. Atherosclerotic calcification of the aorta. The cardiac silhouette is normal in size. The remaining osseous structures are intact. IMPRESSION: No acute osseous pathology.
== END 2023-04-17 09:37 | disposition home or self-care (01) ==
LOC: EC 08:10
DX: S20.211A Contusion of right front wall of thorax, initial encounter (principal); E11.9 Type 2 diabetes mellitus without complications; J45.909 Unspecified asthma, uncomplicated; F17.200 Nicotine dependence, unspecified, uncomplicated; F15.90 Other stimulant use, unspecified, uncomplicated; Z79.4 Long term (current) use of insulin; Z79.84 Long term (current) use of oral hypoglycemic drugs; Z79.51 Long term (current) use of inhaled steroids; Z79.899 Other long term (current) drug therapy; X58.XXXA Exposure to other specified factors, initial encounter; Y99.0 Civilian activity done for income or pay
CPT/HCPCS: 71101; 99283; 96372; J1885

== ENCOUNTER 2023-05-05 17:23 | Emergency (ER) | payer OTHER ==
[2023-05-05 17:48] VITALS: PULSE 110; RESP 18
--- NOTE | 2023-05-05 18:54 | ED ---
General Adult HPI - General Chief complaint: Skin/Abscess/Foreign Body Stated complaint: Lt leg infection Time Seen by Provider: 05/05/23 18:31 Source: patient, RN notes reviewed Mode of arrival: ambulatory Limitations: no limitations - History of Present Illness Initial comments: Patient is a pleasant 42-year-old female presenting to the emergency department with concern for left leg redness. Patient states she was scratched by a stray cat a few days ago. No bite. Patient has developed redness to this area. Patient states her symptoms discomfort. No fevers. Patient states her blood sugar has been running high the past few days, over 400. Last tetanus immunization was around 8 years ago. - Related Data Home Medications Medication Instructions Recorded Confirmed Albuterol Inhaler [Ventolin Hfa 2 puff INHALATION RT-QID PRN 12/25/19 12/25/19 Inhaler] Amoxic-Pot Clav 875-125Mg 1 tab PO BID 12/25/19 12/25/19 [Augmentin 875-125] Butalb/APAP/Caff 50-325-40Mg 1 tab PO BID PRN 12/25/19 12/25/19 [Fioricet 50-325-40] Ergocalciferol [Vitamin D2] 50,000 unit PO Q30D 12/25/19 12/25/19 Fluticasone Propion/Salmeterol 2 puff INHALATION RT-BID 12/25/19 12/25/19 [Fluticasone-Salmeterol 113-14] Gabapentin 600 mg PO TID 12/25/19 12/25/19 Ibuprofen [Motrin] 800 mg PO QID PRN 12/25/19 12/25/19 Insulin Glargine,Hum.rec.anlog 10 unit SQ DAILY 12/25/19 12/25/19 [Basaglar Kwikpen U-100] Insulin Lispro [Admelog] 10 units SQ DAILY 12/25/19 12/25/19 Ipratropium-Albuterol Nebulize 3 ml INHALATION RT-QID 12/25/19 12/25/19 [Duoneb 0.5 mg-3 mg/3 ml Soln] Loratadine-Pseudoeph 10-240 mg 1 tab PO DAILY 12/25/19 12/25/19 [Claritin-D 24 Hour] Montelukast [Singulair] 10 mg PO DAILY 12/25/19 12/25/19 Semaglutide [Ozempic] 0.25 mg SQ Q7D 12/25/19 12/25/19 Triamcinolone Acetonide [Nasacort] 1 spray EA NOSTRIL DAILY 12/25/19 12/25/19 glipiZIDE [Glucotrol] 10 mg PO AC-BID 12/25/19 12/25/19 metFORMIN HCL [Glucophage] 1,000 mg PO DAILY 12/25/19 12/25/19 Previous Rx's Medication Instructions Recorded Sulfamethox-Tmp 800-160Mg [Bactrim 1 tab PO Q12HR 7 Days #14 tab 03/30/23 DS 800-160 mg] Azithromycin [Zithromax Z Pack] 250 mg PO DAILY #6 tab 05/05/23 Allergies Allergy/AdvReac Type Severity Reaction Status Date / Time No Known Allergies Allergy Verified 05/05/23 17:48 Review of Systems ROS Statement: Those systems with pertinent positive or pertinent negative responses have been documented in the HPI. ROS Other: All systems not noted in ROS Statement are negative. 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 Absent: tenderness Extremities exam: Present: other (Left anterior mahoney with erythema from above the ankle to below the knee. There is some warmth and mild swelling.). Absent: calf tenderness Neurological exam: Present: alert Psychiatric exam: Present: normal affect, normal mood Skin exam: Present: other ([employer] track armstrong) Course Vital Signs 05/05/23 17:39 Temperature 98 F Pulse Rate 110 H Respiratory 18 Rate Blood Pressure 150/75 O2 Sat by Pulse 98 Oximetry Medical Decision Making - Medical Decision Making Was pt. sent in by a medical professional or institution (, PA, CENTRAL LAB TECHNICIAN, urgent care, hospital, or alf...) When possible be specific @ -No Did you speak to anyone other than the patient for history (EMS, parent, family, police, friend...)? What history was obtained from this source @ -No Did you review nursing and triage notes (agree or disagree)? Why? @ -I reviewed and agree with nursing and triage notes Were old charts reviewed (outside hosp., previous admission, EMS record, old EKG, old radiological studies, urgent care reports/EKG's, alf records)? Report findings @ -No old charts were reviewed Differential Diagnosis (chest pain, altered mental status, abdominal pain women, abdominal pain men, vaginal bleeding, weakness, fever, dyspnea, syncope, headache, dizziness, GI bleed, back pain, seizure, CVA, palpatations, mental health, musculoskeletal)? @ -Differential Fever: Pneumonia, viral URI, endocarditis, myocarditis, pericarditis, otitis, sinusitis, peritonsillar Abscess, retropharyngeal Abscess, epiglottitis, peritonitis, appendicitis, Leslye cystitis, diverticulitis, hepatitis, colitis, UTI, PID, TOA, pyelonephritis, prostatitis, epididymitis, meningitis, encephalitis, pulmonary embolism, CVA, thyroid storm, pancreatitis, adrenal crisis, cavernous sinus thrombosis, this is not meant to be an all-inclusive list. EKG interpreted by me (3pts min.). @ -As above X-rays interpreted by me (1pt min.). @ -None done CT interpreted by me (1pt min.). @ -None done U/S interpreted by me (1pt. min.). @ -None done What testing was considered but not performed or refused? (CT, X-rays, U/S, labs)? Why? @ -Considered labs and further diagnosis however unable to obtain IV by nursing staff. Patient refuses further attempts What meds were considered but not given or refused? Why? @ -Considered IV antibiotics and insulin however patient is refusing Did you discuss the management of the patient with other professionals (professionals i.e. , PA, CENTRAL LAB TECHNICIAN, lab, RT, psych nurse, social media marketing specialist, glue specialty supervisor, teacher, aoc airspace control officer, casework manager)? Give summary @ -No Was smoking cessation discussed for >3mins.? @ -No Was critical care preformed (if so, how long)? @ -No Were there social determinants of health that impacted care today? How? (Homelessness, low income, unemployed, alcoholism, drug addiction, transportation, low edu. Level, literacy, decrease access to med. care, long term, rehab)? @ -No Was there de-escalation of care discussed even if they declined (Discuss DNR or withdrawal of care, Hospice)? DNR status @ -No What co-morbidities impacted this encounter? (DM, HTN, Smoking, COPD, CAD, Cancer, CVA, ARF, Chemo, Hep., AIDS, mental health diagnosis, sleep apnea, morbid obesity)? @ -None Was patient admitted / discharged? Hospital course, mention meds given and route, prescriptions, significant lab abnormalities, going to OR and other pertinent info. @ -Nursing staff unable to obtain IV. In addition all labs are reported done at this time. Patient refuses further attempts and would like to leave. Patient would like oral antibiotics. A mahoney will leave AGAINST MEDICAL ADVICE. Patient does demonstrate medical decision making. Patient will be provided Oral antibiotics and recommended follow-up with her doctor Saturday and return if worse. Undiagnosed new problem with uncertain prognosis? @ -No Drug Therapy requiring intensive monitoring for toxicity (Heparin, Nitro, Insulin, Cardizem)? @ -No Were any procedures done? @ -No Diagnosis/symptom? @ -Cellulitis Acute, or Chronic, or Acute on Chronic? @ -Acute Uncomplicated (without systemic symptoms) or Complicated (systemic symptoms)? @ -default Side effects of treatment? @ -No Exacerbation, Progression, or Severe Exacerbation? @ -No Poses a threat to life or bodily function? How? (Chest pain, [place], [place], pneumonia, PE, COPD, DKA, ARF, appy, cholecystitis, CVA, Diverticulitis, Homicidal, Suicidal, threat to staff... and all critical care pts) @ -No Disposition Clinical Impression: Cellulitis Disposition: LEFT AGAINST MEDICAL ADVICE Instructions (If sedation given, give patient instructions): Cellulitis (ED) Additional Instructions: Prescription has been sent to pharmacy. Please follow-up with your doctor tomorrow. Return for increased redness, fevers, increase blood sugars, vomiting, worsening or changing symptoms or any other concerns. You're leaving AGAINST MEDICAL ADVICE. Prescriptions: Azithromycin [Zithromax Z Pack] 250 mg PO DAILY #6 tab Is patient prescribed a controlled substance at d/c from ED?: No Referrals: Andres Blevins MD [Primary Care Provider] - 1-2 days Time of Disposition: 20:20
[2023-05-05] MEDS ORDERED: DIPH,PERTUS(ACELL)TETVAC-LF 0.5 ML VIAL IM ONE (18:55)
[2023-05-05] MEDS ORDERED: AZITHROMYCIN 500 MG in SODIUM CHLORIDE 0.9% 250 ML IVPB STA (19:46)
[2023-05-05] MEDS ORDERED: AZITHROMYCIN 500 MG TAB PO STA (20:17)
[2023-05-05] MEDS: SODIUM CHLORIDE 0.9% 500 ML 500 ML IV SCH ×2 (20:24→20:31)
[2023-05-05 20:36] VITALS: BP 126/62; TEMP 98.2
== END 2023-05-05 20:36 | disposition left against medical advice (07) ==
LOC: EC 17:23
DX: L03.116 Cellulitis of left lower limb (principal); E11.9 Type 2 diabetes mellitus without complications; J45.909 Unspecified asthma, uncomplicated; F17.200 Nicotine dependence, unspecified, uncomplicated; Z79.4 Long term (current) use of insulin; Z79.84 Long term (current) use of oral hypoglycemic drugs; Z79.899 Other long term (current) drug therapy; Z79.51 Long term (current) use of inhaled steroids; Z23 Encounter for immunization; Z53.29 Procedure and treatment not carried out because of patient's decision for other reasons
CPT/HCPCS: 90471; 90715; 99282

== ENCOUNTER 2023-05-07 19:52 | Inpatient (IN) | payer OTHER ==
[2023-05-07] MEDS ORDERED: SODIUM CHLORIDE 0.9% 1,000 ML IV ONE (20:46)
[2023-05-07] MEDS ORDERED: ACETAMINOPHEN TAB 325 MG TAB PO STA (21:42)
--- NOTE | 2023-05-07 21:42 | ED ---
General Adult HPI - General Chief complaint: Skin/Abscess/Foreign Body Stated complaint: revisit- leg celluite, pain Time Seen by Provider: 05/07/23 20:21 Source: patient, RN notes reviewed Mode of arrival: ambulatory Limitations: no limitations - History of Present Illness Initial comments: 42-year-old female with a past medical history significant for heroin abuse presents emergency department with a chief complaint of abscess. Patient reports that she was seen and evaluated here 2 days ago for a cat scratch. She was provided azithromycin and has been taking as prescribed. She reports worsening pain, redness and swelling to her left lower extremity. She denies any known fevers, chills or fatigue. She reports that she was at work when a stick scratched her lower ankle yesterday. Denies any numbness, tingling, weakness in extremities. - Related Data Home Medications Medication Instructions Recorded Confirmed Albuterol Inhaler [Ventolin Hfa 2 puff INHALATION RT-QID PRN 12/25/19 05/07/23 Inhaler] Ergocalciferol [Vitamin D2] 50,000 unit PO Q30D 12/25/19 05/07/23 Ibuprofen [Motrin] 800 mg PO BID PRN 12/25/19 05/07/23 Azithromycin [Zithromax Z Pack] See Taper PO DIRECTED 05/07/23 05/07/23 Budesonide/Formoterol Fumarate 2 puff INHALATION RT-BID 05/07/23 05/07/23 [Symbicort 160-4.5 Mcg Inhaler] Dulaglutide [Trulicity] 4.5 mg SQ FR 05/07/23 05/07/23 Empagliflozin [Jardiance] 25 mg PO DAILY 05/07/23 05/07/23 Gabapentin [Neurontin] 800 mg PO TID 05/07/23 05/07/23 INSULIN LISPRO (HumaLOG) [humaLOG] 12 units SQ BID PRN 05/07/23 05/07/23 Insulin Glargine,Hum.rec.anlog 62 units SQ DAILY 05/07/23 05/07/23 [Lantus Solostar Pen] lisinopriL [Zestril] 5 mg PO DAILY 05/07/23 05/07/23 Methadone [Dolophine] 78 mg PO DAILY 08/23/23 08/23/23 Allergies Allergy/AdvReac Type Severity Reaction Status Date / Time No Known Allergies Allergy Verified 05/07/23 22:14 Review of Systems ROS Statement: Those systems with pertinent positive or pertinent negative responses have been documented in the HPI. ROS Other: All systems not noted in ROS Statement are negative. Past Medical History Past Medical History: Asthma, Diabetes Mellitus Additional Past Medical History / Comment(s): migraines History of Any Multi-Drug Resistant Organisms: None Reported Past Surgical History: No Surgical Hx Reported Additional Past Surgical History / Comment(s): hx of IV drug use- 2 years clean Past Psychological History: No Psychological Hx Reported Smoking Status: Vaper Past Alcohol Use History: None Reported Past Drug Use History: None Reported General Exam - General Exam Comments Initial Comments: General: Alert, in no acute distress Head: atraumatic normocephalic. Eyes PERRL, EOMI intact, mucous membranes moist Respiratory: Lungs clear to auscultation bilaterally Cardiovascular: Rate regular rate and rhythm Abdominal: Soft without guarding or rebound Extremities: Normal inspection with full range of motion and normal capillary refill, left lower leg with some central erythema, warmth, generalized tenderness. There is discussed with him centimeter circular lesion without purulent discharge that is tender. No crepitus. 2+ DT/PT pulses. Distal neurovascularly intact Neuroogic: alert and oriented 3, CN II-XII intact, able to ambulate with steady gait Skin: warm dry and intact with normal color Limitations: no limitations Course Vital Signs 05/07/23 19:55 Temperature 99.6 F Pulse Rate 119 H Respiratory 20 Rate Blood Pressure 130/76 O2 Sat by Pulse 97 Oximetry - Reevaluation(s) Reevaluation #1: 05/07/23 23:[address] Blevins who agrees and accepts the patient for admission with IV antibiotics. Vancomycin ordered Medical Decision Making - Medical Decision Making Was pt. sent in by a medical professional or institution (, PA, MILL CRANE OPERATOR, urgent care, hospital, or fci...) When possible be specific @ -[No] Did you speak to anyone other than the patient for history (EMS, parent, family, police, friend...)? What history was obtained from this source @ -[No] Did you review nursing and triage notes (agree or disagree)? Why? @ -[I reviewed and agree with nursing and triage notes] Were old charts reviewed (outside hosp., previous admission, EMS record, old EKG, old radiological studies, urgent care reports/EKG's, fci records)? Report findings @ -[No old charts were reviewed] Differential Diagnosis (chest pain, altered mental status, abdominal pain women, abdominal pain men, vaginal bleeding, weakness, fever, dyspnea, syncope, headache, dizziness, GI bleed, back pain, seizure, CVA, palpatations, mental health, musculoskeletal)? @ -[not applicable] EKG interpreted by me (3pts min.). @ -[As above] X-rays interpreted by me (1pt min.). @ -Tib-fib x-ray negative for any evidence of fracture dislocation or osteomyelitis CT interpreted by me (1pt min.). @ -[None done] U/S interpreted by me (1pt. min.). @ -[None done] What testing was considered but not performed or refused? (CT, X-rays, U/S, labs)? Why? @ -[None] What meds were considered but not given or refused? Why? @ -[None] Did you discuss the management of the patient with other professionals (professionals i.e. , PA, MILL CRANE OPERATOR, lab, RT, psych nurse, high school social studies tutor, dispatcher chief oil, teacher, department of natural resources officer, outpatient case manager)? Give summary @ -Case discussed with H who agrees and accepts the patient for admission with IV antibiotics and consult infectious disease Was smoking cessation discussed for >3mins.? @ -[No] Was critical care preformed (if so, how long)? @ -[No] Were there social determinants of health that impacted care today? How? (Homelessness, low income, unemployed, alcoholism, drug addiction, transportation, low edu. Level, literacy, decrease access to med. care, chcf, re hab)? @ -[No] Was there de-escalation of care discussed even if they declined (Discuss DNR or withdrawal of care, Hospice)? DNR status @ -[No] What co-morbidities impacted this encounter? (DM, HTN, Smoking, COPD, CAD, Cancer, CVA, ARF, Chemo, Hep., AIDS, mental health diagnosis, sleep apnea, morbid obesity)? @ -[None] Was patient admitted / discharged? Hospital course, mention meds given and route, prescriptions, significant lab abnormalities, going to OR and other pertinent info. @ -Admission. This is a pleasant 42-year-old female presents the emergency department with left leg pain. Patient had a thorough history and physical exam performed on the ED. Physical exam reveals circumferential erythema, edema, tenderness to left lower leg. 2+ DP/PT pulses. Distal neurovascularly intact. Patient had lab work and imaging which revealed: WBC 14.1, hemoglobin 13.0 sodium 135, potassium 3. BUN 14, creatinine 0.69 AST 56, ALT 85 X-ray of the tib-fib does not reveal any evidence of osteomyelitis or acute fracture. I discussed the results in detail with the patient verbalized understanding all questions were addressed. She is agreeable with the plan for admission for IV antibiotics. Case discussed with Briana Niño who agrees and accepts the patient for admission with consult to infectious disease. Patient be started on IV Vancomycin. Case discussed with Dr. Puentes , [facility] who agrees with plan of care Undiagnosed new problem with uncertain prognosis? @ -[No] Drug Therapy requiring intensive monitoring for toxicity (Heparin, Nitro, Insulin, Cardizem)? @ -[No] Were any procedures done? @ -[No] Diagnosis/symptom? @ - Cellulitis of Left Lower leg - transaminitis Acute, or Chronic, or Acute on Chronic? @ -Acute Uncomplicated (without systemic symptoms) or Complicated (systemic symptoms)? @ -Uncomplicated Side effects of treatment? @ -[No] Exacerbation, Progression, or Severe Exacerbation? @ -[No] Poses a threat to life or bodily function? How? (Chest pain, [place], [place], pneumonia, PE, COPD, DKA, ARF, appy, cholecystitis, CVA, Diverticulitis, Homicidal, Suicidal, threat to staff... and all critical care pts) @ -Moderate likelihood - Lab Data Result diagrams: 05/07/23 20:59 05/07/23 20:59 Lab Results 05/07/23 05/07/23 05/07/23 Range/Units 20:59 20:59 20:59 WBC 14.1 H (3.8-10.6) k/uL RBC 4.98 (3.80-5.40) m/uL Hgb 13.0 (11.4-16.0) gm/dL Hct 40.0 (34.0-46.0) % MCV 80.3 D (80.0-100.0) fL MCH 26.2 (25.0-35.0) pg MCHC 32.6 (31.0-37.0) g/dL RDW 14.0 (11.5-15.5) % Plt Count 335 (150-450) k/uL MPV 8.2 Neutrophils % 74 % Lymphocytes % 16 % Monocytes % 5 % Eosinophils % 3 % Basophils % 0 % Neutrophils # 10.5 H (1.3-7.7) k/uL Lymphocytes # 2.3 (1.0-4.8) k/uL Monocytes # 0.7 (0-1.0) k/uL Eosinophils # 0.4 (0-0.7) k/uL Basophils # 0.1 (0-0.2) k/uL Sodium 135 L (137-145) mmol/L Potassium 3.2 L (3.5-5.1) mmol/L Chloride 94 L (98-107) mmol/L Carbon Dioxide 28 (22-30) mmol/L Anion Gap 13 mmol/L BUN 14 (7-17) mg/dL Creatinine 0.69 (0.52-1.04) mg/dL Est GFR (CKD-EPI)AfAm >90 (>60 ml/min/1.73 sqM) Est GFR (CKD-EPI)NonAf >90 (>60 ml/min/1.73 sqM) Glucose 121 H (74-99) mg/dL Plasma Lactic Acid Mason 1.2 (0.7-2.0) mmol/L Calcium 9.2 (8.4-10.2) mg/dL Total Bilirubin 0.5 (0.2-1.3) mg/dL AST 56 H (14-36) U/L ALT 45 H (4-34) U/L Alkaline Phosphatase 111 (38-126) U/L Total Protein 8.4 H (6.3-8.2) g/dL Albumin 4.4 (3.5-5.0) g/dL Disposition Clinical Impression: Cellulitis, Transaminitis Disposition: HOME SELF-CARE Condition: Stable Is patient prescribed a controlled substance at d/c from ED?: No Time of Disposition: 23:22
--- NOTE | 2023-05-07 22:02 | XR ---
EXAMINATION TYPE: XR tibia fibula LT DATE OF EXAM: 05/07/2023 CLINICAL HISTORY: pain TECHNIQUE: AP and lateral images of the left tibia and fibula are obtained. COMPARISON: None. FINDINGS: There is no acute fracture/dislocation evident. The joint spaces appear within normal lara its. The overlying soft tissue appears unremarkable. IMPRESSION: There is no acute fracture or dislocation seen. ICD 10 NO FRACTURE, INITIAL EVALUATION
[2023-05-07 22:04] LABS: ALT 45 U/L (4-34); AST 56 U/L (14-36); African American GFR (CKD) >90 (>60 ml/min/1.73 sqM); Albumin 4.4 g/dL (3.5-5.0); Alkaline Phosphatase 111 U/L (38-126); Anion Gap 13 mmol/L; Blood Urea Nitrogen 14 mg/dL (7-17); Calcium 9.2 mg/dL (8.4-10.2); Carbon Dioxide 28 mmol/L (22-30); Chloride 94 mmol/L (98-107); Glucose 121 mg/dL (74-99); Non-African American GFR(CKD) >90 (>60 ml/min/1.73 sqM); Potassium 3.2 mmol/L (3.5-5.1); Sodium 135 mmol/L (137-145); Total Bilirubin 0.5 mg/dL (0.2-1.3); Total Protein 8.4 g/dL (6.3-8.2)
[2023-05-07 22:17] LABS: Basophils # (A) 0.1 k/uL (0-0.2); Basophils % (A) 0 %; Eosinophils # (A) 0.4 k/uL (0-0.7); Eosinophils % (A) 3 %; Lymphocytes # (A) 2.3 k/uL (1.0-4.8); Lymphocytes % (A) 16 %; MCH 26.2 pg (25.0-35.0); MCHC 32.6 g/dL (31.0-37.0); Mean Platelet Volume 8.2; Monocytes # (A) 0.7 k/uL (0-1.0); Monocytes % (A) 5 %; Neutrophils # (A) 10.5 k/uL (1.3-7.7); Neutrophils % (A) 74 %; Platelet Count 335 k/uL (150-450); RBC 4.98 m/uL (3.80-5.40); WBC 14.1 k/uL (3.8-10.6)
[2023-05-07 22:25] LABS: MCV 80.3 fL (80.0-100.0)
[2023-05-07] MEDS ORDERED: VANCOMYCIN IV PER PHARMACY 1 EACH MISC MISCELLANE PRN (23:14)
[2023-05-07] MEDS ORDERED: VANCOMYCIN 1,500 MG in SODIUM CHLORIDE 0.9% 500 ML 500 ML IVPB STA (23:19)
[2023-05-07] MEDS ORDERED: NALOXONE 0.4 MG/ML 1 ML VIAL IV PRN (23:23)
[2023-05-08] MEDS: SODIUM CHLORIDE 0.9% 1,000 ML IV SCH ×2 (00:27→09:49)
[2023-05-08 07:00] LABS: African American GFR (CKD) >90 (>60 ml/min/1.73 sqM); Anion Gap 12 mmol/L; Blood Urea Nitrogen 12 mg/dL (7-17); Calcium 8.5 mg/dL (8.4-10.2); Carbon Dioxide 24 mmol/L (22-30); Chloride 104 mmol/L (98-107); Glucose 129 mg/dL (74-99); Non-African American GFR(CKD) >90 (>60 ml/min/1.73 sqM); Sodium 140 mmol/L (137-145)
[2023-05-08 07:02] LABS: Potassium 4.3 mmol/L (3.5-5.1)
[2023-05-08 07:46] LABS: Basophils % (A) 0 %; Eosinophils # (A) 0.3 k/uL (0-0.7); Eosinophils % (A) 4 %; HCT 36.8 % (34.0-46.0); HGB 12.3 gm/dL (11.4-16.0); Lymphocytes # (A) 1.9 k/uL (1.0-4.8); Lymphocytes % (A) 21 %; MCH 26.4 pg (25.0-35.0); MCHC 33.4 g/dL (31.0-37.0); Mean Platelet Volume 9.3; Monocytes # (A) 0.5 k/uL (0-1.0); Monocytes % (A) 6 %; Neutrophils # (A) 6.3 k/uL (1.3-7.7); Neutrophils % (A) 68 %; Platelet Count 270 k/uL (150-450); RBC 4.65 m/uL (3.80-5.40); RDW 14.2 % (11.5-15.5); WBC 9.2 k/uL (3.8-10.6)
[2023-05-08 07:47] LABS: Glucose,Whole Blood 149 mg/dL (70-110)
[2023-05-08] MEDS: KETOROLAC 15 MG/ML 1 ML VIAL IVP PRN ×2 (09:46→21:39)
[2023-05-08 12:00] LABS: Glucose,Whole Blood 206 mg/dL (70-110)
[2023-05-08] MEDS ORDERED: VANCOMYCIN 1,500 MG in SODIUM CHLORIDE 0.9% 500 ML 500 ML IVPB SCH (12:00)
[2023-05-08] MEDS ORDERED: INSULIN ASPART (NovoLOG) 100 UNIT/ML VIAL SQ PRN (15:46)
[2023-05-08] MEDS ORDERED: ALBUTEROL NEBULIZED 2.5 MG/3 ML INHALATION PRN (15:46)
[2023-05-08 16:09] LABS: Glucose,Whole Blood 134 mg/dL (70-110)
[2023-05-08] MEDS: GABAPENTIN 400 MG CAP PO SCH ×2 (16:23→21:38)
[2023-05-08] MEDS: METHADONE 10 MG TAB PO SCH (17:07)
[2023-05-08] MEDS ORDERED: IBUPROFEN 800 MG TAB PO PRN (18:31)
[2023-05-08] MEDS: DAPAGLIFLOZIN PROPANEDIOL 10 MG TABLET PO SCH (18:52)
[2023-05-08] MEDS: SYMBICORT 160-4.5 MCG INHALER INHALATION SCH (19:58)
--- NOTE | 2023-05-08 20:53 | HP ---
HISTORY AND PHYSICAL CHIEF COMPLAINT: in left leg. HISTORY OF PRESENT ILLNESS: This is another admission for this 42-year-old female. She incurred an abrasion on her left knee left mahoney or anterior area. It was getting worse and she came to the emergency room. She was admitted. [place] is diabetic[place] [address]. Potassium was slightly low at 3.2. Her blood sugar was 206. REVIEW OF SYSTEMS: She felt fine otherwise. She had no fever, chills, nausea, vomiting, etc. Past medical history, family history, and personal and social histories are unremarkable and noncontributory otherwise. PHYSICAL EXAMINATION: VITAL SIGNS: Normal. HEAD, EARS, EYES, NOSE, MOUTH AND THROAT: Normal. CHEST: Clear. CARDIAC: Normal. No murmurs. ABDOMEN: Soft and slightly protuberant. EXTREMITIES: Revealed a scabbed area in the left knee over the patella and the left anterior lower leg. Her mahoney area was involved with an erythematous and edematous area of cellulitis. This extended circumferentially. IMPRESSION: 1. Cellulitis of the left lower leg. 2. Type 2 diabetes mellitus. PLAN: 1. Bedrest. 2. IV fluids. 3. IV antibiotics. 4. Correct hypokalemia. MMODL / IJN: [id number] /
--- NOTE | 2023-05-08 21:36 | P.CONS ---
History of Present Illness - Reason for Consult Consult date: 05/08/23 Left lower extremity cellulitis Requesting physician: Andres Blevins - Chief Complaint Left leg swelling and redness x few days - History of Present Illness Patient is a 42-year-old female with a past medical history of acne for diabetes mellitus and asthma presenting to the hospital with a left lower extremity pain swelling and redness apparently the patient has been scratched by her cat 2 days before her symptoms started patient denies having any bite she noticed to have increasing swelling as well as redness and pain patient describes the pain to be throbbing almost 10 out of 10 in severity by the time she present to the hospital without any radiation patient has been treated with Zithromax in the outpatient setting without improvement have the patient present to the hospital on arrival to the ER the patient did have a low-grade fever of 99.6 degree for night patient was tachycardic not hypoxic or significant hypertension did have elevated burden of 14.1 with a left shift creatinine 0.69 down enzymes mildly elevated patient did have x-ray of the tibia and fibula that was negative for any fracture blood culture obtained currently pending patient was started on vancomycin admitted to the hospital infectious disease was consulted for further management of antibiotic therapy Review of Systems Positive point and negatives has been mentioned in the HPI, complete review of systems was performed and all other systems are negative Past Medical History Past Medical History: Asthma, Diabetes Mellitus Additional Past Medical History / Comment(s): migraines History of Any Multi-Drug Resistant Organisms: None Reported Past Surgical History: No Surgical Hx Reported Additional Past Surgical History / Comment(s): hx of IV drug use- 2 years clean Additional Past Anesthesia/Blood Transfusion Reaction / Comm: unknown Past Psychological History: No Psychological Hx Reported Smoking Status: Vaper Past Alcohol Use History: None Reported Past Drug Use History: None Reported Medications and Allergies Home Medications Medication Instructions Recorded Confirmed Type Albuterol Inhaler [Ventolin Hfa 2 puff INHALATION RT-QID PRN 12/25/19 05/07/23 History Inhaler] Ergocalciferol [Vitamin D2 50,000 unit PO Q30D 12/25/19 05/07/23 History (DRISDOL)] Ibuprofen [Motrin] 800 mg PO BID PRN 12/25/19 05/07/23 History Budesonide/Formoterol Fumarate 2 puff INHALATION RT-BID 05/07/23 05/07/23 History [Symbicort 160-4.5 Mcg Inhaler] Dulaglutide [Trulicity] 4.5 mg SQ FR 05/07/23 05/07/23 History Empagliflozin [Jardiance] 25 mg PO DAILY 05/07/23 05/07/23 History Gabapentin [Neurontin] 800 mg PO TID 05/07/23 05/07/23 History INSULIN LISPRO (HumaLOG) [humaLOG] 12 units SQ BID PRN 05/07/23 05/07/23 History Insulin Glargine,Hum.rec.anlog 62 units SQ DAILY 05/07/23 05/07/23 History [Lantus Solostar Pen] lisinopriL [Zestril] 5 mg PO DAILY 05/07/23 05/07/23 History Methadone [Dolophine] 78 mg PO DAILY 05/08/23 05/10/23 History Amoxic-Pot Clav 875-125Mg 1 each PO Q12HR #30 tab 05/09/23 Rx [Augmentin 875-125] Insulin Detemir (Levemir) [Levemir] 70 unit SQ DAILY@0700 30 Days #1 05/10/23 Rx pen Allergies Allergy/AdvReac Type Severity Reaction Status Date / Time No Known Allergies Allergy Verified 05/07/23 22:14 Physical Exam Vitals: Vital Signs Temp Pulse Pulse Resp BP BP Pulse Ox 05/08/23 14:10 97.7 F 87 20 103/66 97 05/08/23 07:15 97.7 F 87 18 97/62 96 05/08/23 02:00 97.7 F 87 16 124/58 96 05/07/23 19:55 99.6 F 119 H 20 130/76 97 Intake and Output 05/08/23 05/08/23 05/08/23 06:59 14:59 22:59 Intake Total 236 150 Balance 236 150 Intake: Oral 236 150 Other: Voiding Method Toilet # Voids 1 5 # Bowel Movements 1 Weight 83.915 kg GENERAL DESCRIPTION: Middle-aged female lying in bed, no distress. No tachypnea or accessory muscle of respiration use. HEENT: Shows Pallor , no scleral icterus. Oral mucous membrane is dry. No pharyngeal erythema or thrush NECK: Trachea central, no thyromegaly. LUNGS: Unlabored breathing. Clear to auscultation anteriorly. No wheeze or crackle. HEART: S1, S2, regular rate and rhythm. No loud murmur ABDOMEN: Soft, no tenderness , guarding or rigidity, no organomegaly EXTREMITIES: Left leg with diffuse swelling and redness no open area or any drainage SKIN: No rash, no masses palpable. NEUROLOGICAL: The patient is awake, alert, oriented x3, mood and affect normal. Results CBC & Chem 7: 05/08/23 06:30 05/10/23 07:39 Labs: Abnormal Lab Results - Last 24 Hours (Table) 05/07/23 05/07/23 05/08/23 Range/Units 20:59 20:59 06:30 WBC 14.1 H (3.8-10.6) k/uL MCV 79.0 L (80.0-100.0) fL Neutrophils # 10.5 H (1.3-7.7) k/uL Sodium 135 L (137-145) mmol/L Potassium 3.2 L (3.5-5.1) mmol/L Chloride 94 L (98-107) mmol/L Creatinine (0.52-1.04) mg/dL Glucose 121 H (74-99) mg/dL POC Glucose (mg/dL) (70-110) mg/dL AST 56 H (14-36) U/L ALT 45 H (4-34) U/L Total Protein 8.4 H (6.3-8.2) g/dL 05/08/23 05/08/23 05/08/23 Range/Units 06:30 07:46 11:59 WBC (3.8-10.6) k/uL MCV (80.0-100.0) fL Neutrophils # (1.3-7.7) k/uL Sodium (137-145) mmol/L Potassium (3.5-5.1) mmol/L Chloride (98-107) mmol/L Creatinine 0.48 L (0.52-1.04) mg/dL Glucose 129 H (74-99) mg/dL POC Glucose (mg/dL) 149 H 206 H (70-110) mg/dL AST (14-36) U/L ALT (4-34) U/L Total Protein (6.3-8.2) g/dL 05/08/23 Range/Units 16:07 WBC (3.8-10.6) k/uL MCV (80.0-100.0) fL Neutrophils # (1.3-7.7) k/uL Sodium (137-145) mmol/L Potassium (3.5-5.1) mmol/L Chloride (98-107) mmol/L Creatinine (0.52-1.04) mg/dL Glucose (74-99) mg/dL POC Glucose (mg/dL) 134 H (70-110) mg/dL AST (14-36) U/L ALT (4-34) U/L Total Protein (6.3-8.2) g/dL Assessment and Plan (1) Left leg cellulitis Status: Acute Code(s): L03.116 - CELLULITIS OF LEFT LOWER LIMB SNOMED Code(s): 036360572 Plan: 1patient presented to hospital with sepsis in this patient with low-grade fever elevated white count tachycardia source is acute left lower extremity cellulitis in this patient with diffuse swelling redness started with a cat scratch failing outpatient oral Zithromax therapy patient did have an area of fluctuation and concern for possible development of an abscess likely from gram- positive skin marta less likely gram-negative infection but not entirely excluded. 2marked the area of the redness followed by Alfredo wrap to keep the swelling down discussed with the RN 3vancomycin pharmacy to dose with a target trough of 15 while watching kidney function and Vanco trough closely. We will add Unasyn while waiting for the culture to finalize 4nurses advised, if the area started to drain to get culture We will follow on clinical condition and cultures to further adjust medication if needed Thank you for this consultation we will follow the patient along with you Dictation was produced using [employer] dictation software. please excuse any grammatical, word or spelling errors. Time with Patient: Greater than 30
[2023-05-08] MEDS: VANCOMYCIN 1,500 MG in SODIUM CHLORIDE 0.9% 500 ML 500 ML IVPB SCH (21:39)
[2023-05-09] MEDS: AMPICILLIN-SULBACTAM 3 GM in SODIUM CHLORIDE 0.9% 100 ML IVPB SCH ×4 (01:13→18:30)
[2023-05-09] MEDS: SODIUM CHLORIDE 0.9% 1,000 ML IV SCH ×2 (04:17→23:06)
[2023-05-09] MEDS: VANCOMYCIN 1,500 MG in SODIUM CHLORIDE 0.9% 500 ML 500 ML IVPB SCH ×2 (04:17→12:19)
[2023-05-09] MEDS: SYMBICORT 160-4.5 MCG INHALER INHALATION SCH ×2 (08:19→21:08)
[2023-05-09] MEDS: METHADONE 10 MG TAB PO SCH (08:47)
[2023-05-09] MEDS: GABAPENTIN 400 MG CAP PO SCH ×3 (08:47→21:22)
[2023-05-09] MEDS: lisinopriL 5 MG TAB PO SCH (08:49)
[2023-05-09] MEDS: DAPAGLIFLOZIN PROPANEDIOL 10 MG TABLET PO SCH (08:49)
[2023-05-09] MEDS: INSULIN DETEMIR (LEVEMIR) 100 UNIT/ML SYR SQ SCH (10:43)
[2023-05-09] MEDS ORDERED: VANCOMYCIN TROUGH DUE 1 EACH MISC MISCELLANE ONE (11:00)
[2023-05-09 11:38] LABS: Glucose,Whole Blood 236 mg/dL (70-110)
[2023-05-09 12:23] LABS: African American GFR (CKD) >90 (>60 ml/min/1.73 sqM); Non-African American GFR(CKD) >90 (>60 ml/min/1.73 sqM)
[2023-05-09 16:21] LABS: Glucose,Whole Blood 158 mg/dL (70-110)
--- NOTE | 2023-05-09 16:42 | P.GSCN ---
History of Present Illness History of present illness: 42-year-old diabetic female came with history Scratch to the right lower extremity patient was in the hospital she went home now she has been readmitted she has marked redness and tenderness on right lower extremity. Patient also has a history of uterine and use in the past she has history of diabetes her white cell count is 14.1 with low-grade fever according the patient today her redness on the posterior calf is has improved but right lower leg anterior aspect has some marked redness some fluctuation noted patient is an IV antibiotic under care of infectious disease and graft medical history history of diabetes asthma Neck is supple Chest is clear good entry both lungs first and second sound present Abdomen soft nontender Femorals are 1+ DP palpable patient has a marked cellulitis involving the right lower extremity some fluctuation noted according the patient her redness on the post tear aspect of the leg has improved Plan is continue with IV antibiotic we we will use a Silvadene cream with compression wrap with one pillow elevation we will reevaluate the patient came patient may need incision and drainage we'll follow with you we will check him again tomorrow continue with IV antibiotic and one pillow elevation Past Medical History Past Medical History: Asthma, Diabetes Mellitus Additional Past Medical History / Comment(s): migraines History of Any Multi-Drug Resistant Organisms: None Reported Past Surgical History: No Surgical Hx Reported Additional Past Surgical History / Comment(s): hx of IV drug use- 2 years clean Additional Past Anesthesia/Blood Transfusion Reaction / Comm: unknown Past Psychological History: No Psychological Hx Reported Smoking Status: Vaper Past Alcohol Use History: None Reported Past Drug Use History: None Reported Medications and Allergies Home Medications Medication Instructions Recorded Confirmed Type Albuterol Inhaler [Ventolin Hfa 2 puff INHALATION RT-QID PRN 12/25/19 05/07/23 History Inhaler] Ergocalciferol [Vitamin D2 50,000 unit PO Q30D 12/25/19 05/07/23 History (DRISDOL)] Ibuprofen [Motrin] 800 mg PO BID PRN 12/25/19 05/07/23 History Budesonide/Formoterol Fumarate 2 puff INHALATION RT-BID 05/07/23 05/07/23 History [Symbicort 160-4.5 Mcg Inhaler] Dulaglutide [Trulicity] 4.5 mg SQ FR 05/07/23 05/07/23 History Empagliflozin [Jardiance] 25 mg PO DAILY 05/07/23 05/07/23 History Gabapentin [Neurontin] 800 mg PO TID 05/07/23 05/07/23 History INSULIN LISPRO (HumaLOG) [humaLOG] 12 units SQ BID PRN 05/07/23 05/07/23 History Insulin Glargine,Hum.rec.anlog 62 units SQ DAILY 05/07/23 05/07/23 History [Lantus Solostar Pen] lisinopriL [Zestril] 5 mg PO DAILY 05/07/23 05/07/23 History Methadone [Dolophine] 78 mg PO DAILY 05/08/23 05/08/23 History Amoxic-Pot Clav 875-125Mg 1 each PO Q12HR #30 tab 05/09/23 Rx [Augmentin 875-125] Allergies Allergy/AdvReac Type Severity Reaction Status Date / Time No Known Allergies Allergy Verified 05/07/23 22:14 Surgical - Exam Vital Signs Temp Pulse Resp BP Pulse Ox 99.6 F 119 H 20 130/76 97 05/07/23 19:55 05/07/23 19:55 05/07/23 19:55 05/07/23 19:55 05/07/23 19:55 Results - Labs 05/08/23 06:30 05/09/23 10:46 Abnormal Lab Results - Last 24 Hours (Table) 05/09/23 05/09/23 Range/Units 11:36 16:20 POC Glucose (mg/dL) 236 H 158 H (70-110) mg/dL Microbiology - Last 24 Hours (Table) 05/07/23 21:29 Blood Culture - Preliminary Blood 05/07/23 21:44 Blood Culture - Preliminary Blood Diabetes panel 05/09/23 Range/Units 10:46 Creatinine 0.52 (0.52-1.04) mg/dL Pituitary panel 05/09/23 Range/Units 10:46 Creatinine 0.52 (0.52-1.04) mg/dL Adrenal panel 05/09/23 Range/Units 10:46 Creatinine 0.52 (0.52-1.04) mg/dL
[2023-05-09] MEDS: VANCOMYCIN 1,250 MG in SODIUM CHLORIDE 0.9% 250 ML IVPB SCH (18:31)
[2023-05-09 20:47] LABS: Glucose,Whole Blood 238 mg/dL (70-110)
[2023-05-09] MEDS: AMOXIC-POT CLAV 875-125MG 1 EACH TAB PO SCH (21:22)
--- NOTE | 2023-05-10 01:20 | PN ---
PROGRESS NOTE DATE OF SERVICE: 05/09/2023 CHIEF COMPLAINT: Cellulitis of the left lower leg and diabetes. HISTORY OF PRESENT ILLNESS: This lady is doing well except for some discomfort when she puts her leg down. Laboratory studies and temperature normal. PHYSICAL EXAMINATION: CHEST: Clear. CARDIAC: Normal. ABDOMEN: Soft, nontender. EXTREMITIES: Left lower leg is wrapped in Alfredo wrap. IMPRESSION: Cellulitis of the left leg. PLAN: She was to be discharged today, but it has been determined there may be an abscess, and this will be incised and drained. Blood sugar is doing well. MMODL / IJN: [id number] /
[2023-05-10] MEDS: SODIUM CHLORIDE 0.9% 1,000 ML IV SCH (04:40)
[2023-05-10] MEDS: VANCOMYCIN 1,250 MG in SODIUM CHLORIDE 0.9% 250 ML IVPB SCH ×2 (04:40→15:34)
[2023-05-10 06:04] LABS: Glucose,Whole Blood 267 mg/dL (70-110)
[2023-05-10] MEDS: SYMBICORT 160-4.5 MCG INHALER INHALATION SCH (08:17)
[2023-05-10] MEDS: INSULIN DETEMIR (LEVEMIR) 100 UNIT/ML SYR SQ SCH (09:05)
[2023-05-10] MEDS: METHADONE 10 MG TAB PO SCH (09:06)
[2023-05-10] MEDS: GABAPENTIN 400 MG CAP PO SCH (09:06)
[2023-05-10] MEDS: lisinopriL 5 MG TAB PO SCH (09:07)
[2023-05-10] MEDS: DAPAGLIFLOZIN PROPANEDIOL 10 MG TABLET PO SCH (09:07)
[2023-05-10] MEDS: AMOXIC-POT CLAV 875-125MG 1 EACH TAB PO SCH (09:07)
[2023-05-10 09:50] LABS: African American GFR (CKD) >90 (>60 ml/min/1.73 sqM); Non-African American GFR(CKD) >90 (>60 ml/min/1.73 sqM)
[2023-05-10 11:09] LABS: Glucose,Whole Blood 173 mg/dL (70-110)
[2023-05-10 13:32] VITALS: BP 116/76; PULSE 94; RESP 17; TEMP 98.3
[2023-05-10 14:45] VITALS: BMI 34.9
--- NOTE | 2023-05-10 15:35 | PN ---
PROGRESS NOTE SUBJECTIVE: This is a 42-year-old white female. The patient had been admitted with a history of cat bite on right lower extremity. The patient came with marked redness of the right lower extremity. The patient was under care of Infectious Disease. IV antibiotic. We started using Silvadene cream with compression wraps. OBJECTIVE: On examination today, the redness have almost gone. There is no localized tenderness noted. No fever or chills. PLAN: The patient will be going home on p.o. antibiotic under the care of Dr. Blevins. The patient is stable from surgical point of view. MMODL / IJN: [id number] /
[2023-05-10] MEDS ORDERED: NON FORMULARY DRUG (Dulaglutide [Trulicity] 4.5 MG/0.5 ML Each) SQ SCH (15:46)
--- NOTE | 2023-05-10 17:01 | P.PN ---
Subjective Progress Note Date: 05/09/23 Principal diagnosis: Left lower extremity cellulitis Patient is a 42-year-old female with a past medical history of acne for diabetes mellitus and asthma presenting to the hospital with a left lower extremity pain swelling and redness apparently the patient has been scratched by her cat 2 days before her symptoms started, patient did have elevated white count axis were negative for any bony fracture on today's evaluation that is 05/09/2023, the patient denies having any fever or chills, the patient left lower extremity pain and swelling has slightly decreased no nausea no vomiting no abdominal pain and no diarrhea Objective - Vital Signs Vital signs: Vital Signs Temp 97.7 F 05/09/23 07:30 Pulse 94 05/09/23 07:30 Resp 20 05/09/23 07:30 BP 111/73 05/09/23 07:30 Pulse Ox 96 05/09/23 07:30 FiO2 Intake & Output 05/08/23 05/09/23 05/09/23 18:59 06:59 18:59 Intake Total 386 900 118 Balance 386 900 118 Intake: Intake, IV Titration 900 Amount Sodium Chloride 0.9% 1, 900 000 ml @ 75 mls/hr IV . [id number] [facility] Rx#:[id number] Oral 386 118 Other: # Voids 5 1 # Bowel Movements 1 - Exam GENERAL DESCRIPTION: Middle-aged female lying in bed in no distress RESPIRATORY SYSTEM: Unlabored breathing , decreased breath sounds at bases HEART: S1 S2 regular rate and rhythm , ABDOMEN: Soft , no tenderness EXTREMITIES: Left lower extremity diffuse swelling redness slightly decreased did have area of fluctuation possible abscess formation - Labs CBC & Chem 7: 05/08/23 06:30 05/10/23 07:39 Labs: Abnormal Lab Results - Last 24 Hours (Table) 05/08/23 05/09/23 Range/Units 16:07 11:36 POC Glucose (mg/dL) 134 H 236 H (70-110) mg/dL Microbiology - Last 24 Hours (Table) 05/07/23 21:29 Blood Culture - Preliminary Blood 05/07/23 21:44 Blood Culture - Preliminary Blood Assessment and Plan (1) Left leg cellulitis Status: Acute Code(s): L03.116 - CELLULITIS OF LEFT LOWER LIMB SNOMED Code(s): 692630639 Plan: 1patient presented to hospital with sepsis in this patient with low-grade fever elevated white count tachycardia source is acute left lower extremity cellulitis in this patient with diffuse swelling redness started with a cat scratch failing outpatient oral Zithromax therapy patient did have an area of fluctuation and concern for possible development of an abscess likely from gram-positive skin marta less likely gram-negative infection but not entirely excluded. 2patient did have an area of fluctuation possible abscess formation and will benefit from surgical drainage and deep culture discussed with the nursing staff 3vancomycin pharmacy to dose with a target trough of 15 along with Unasyn and monitor clinical course closely Dictation was produced using [employer] dictation software. please excuse any grammatical, word or spelling errors. Time with Patient: Less than 30
--- NOTE | 2023-05-10 17:03 | P.PN ---
Subjective Progress Note Date: 05/10/23 Principal diagnosis: Left lower extremity cellulitis Patient is a 42-year-old female with a past medical history of acne for diabetes mellitus and asthma presenting to the hospital with a left lower extremity pain swelling and redness apparently the patient has been scratched by her cat 2 days before her symptoms started, patient did have elevated white count axis were negative for any bony fracture on today's evaluation that is 05/10/2023, the patient remains to be afebrile, the patient left lower extremity pain and swelling has decreased in intensity, the patient denies having any nausea no vomiting no abdominal pain and no diarrhea, the patient is feeling better and wants to go home Objective - Vital Signs Vital signs: Vital Signs Temp 98.3 F 05/10/23 13:32 Pulse 94 05/10/23 13:32 Resp 17 05/10/23 13:32 BP 116/76 05/10/23 13:32 Pulse Ox 97 05/10/23 13:32 FiO2 Intake & Output 05/09/23 05/10/23 05/10/23 18:59 06:59 18:59 Intake Total 118 467 Balance 118 467 Weight 83.915 kg Intake: Oral 118 467 Other: Voiding Method Toilet # Voids 6 2 - Exam GENERAL DESCRIPTION: Middle-aged female lying in bed in no distress RESPIRATORY SYSTEM: Unlabored breathing , decreased breath sounds at bases HEART: S1 S2 regular rate and rhythm , ABDOMEN: Soft , no tenderness EXTREMITIES: Left lower extremity diffuse swelling redness slightly decreased did have area of fluctuation possible abscess formation - Labs CBC & Chem 7: 05/08/23 06:30 05/10/23 07:39 Labs: Abnormal Lab Results - Last 24 Hours (Table) 05/09/23 05/09/23 05/10/23 Range/Units 16:20 20:45 06:02 POC Glucose (mg/dL) 158 H 238 H 267 H (70-110) mg/dL Hemoglobin A1c (<=6.0) % 05/10/23 05/10/23 Range/Units 08:02 11:07 POC Glucose (mg/dL) 173 H (70-110) mg/dL Hemoglobin A1c 10.6 H (<=6.0) % Microbiology - Last 24 Hours (Table) 05/07/23 21:29 Blood Culture - Preliminary Blood 05/07/23 21:44 Blood Culture - Preliminary Blood Assessment and Plan (1) Left leg cellulitis Status: Acute Code(s): L03.116 - CELLULITIS OF LEFT LOWER LIMB SNOMED Code(s): 580925569 Plan: 1patient presented to hospital with sepsis in this patient with low-grade fever elevated white count tachycardia source is acute left lower extremity cellulitis in this patient with diffuse swelling redness started with a cat scratch failing outpatient oral Zithromax therapy patient did have an area of fluctuation and concern for possible development of an abscess likely from gram-positive skin marta less likely gram-negative infection but not entirely excluded. 2patient did have an area of fluctuation possible abscess formation and will benefit from surgical drainage, patient has been told by her PCP that he will do it in the office and the patient insisting on going home 3prescription for Augmentin has been sent we should be okay at this point a dvised if any worsening of swelling or redness after discharge to to let us know right away otherwise follow with the PCP Dictation was produced using [employer] dictation software. please excuse any gram matical, word or spelling errors. Time with Patient: Less than 30
[2023-05-11] MEDS ORDERED: INSULIN DETEMIR (LEVEMIR) 100 UNIT/ML SYR SQ SCH (07:00)
--- NOTE | 2023-05-14 12:30 | CDI ---
Documentation Clarification Form Date: 05/14/2023 12:18:56 PM From: Donna Sifuentes Admit Date: 05/08/2023 12:01:00 AM Patient Name: Asha Rivera Visit Number: [id number] Discharge Date: 05/10/2023 04:10:00 PM ATTENTION: The Clinical Documentation Specialists (CDI) and [facility] Coding Staff appreciate your assistance in clarifying documentation. Please respond to the clarification below the line at the bottom and electronically sign. The CDI & [facility] Coding staff will review the response and follow-up if needed. Please note: Queries are made part of the Legal Health Record. If you have any questions, please contact the author of this message via ITS. Dr. Andres Blevins Per ID consult and Progress Notes: "Patient presented to the hospital with sepsis in this patient with low-grade fever." Based on this information and the findings below, did patient have sepsis or was it ruled out. Risk factors: cat scratch with cellulitis of leg. Clinical Indicators: WBC 14.1 Lactic acid: 1.2 Blood cultures: No growth Vitals signs: 99.6 F, 119 bpm, 20, 130/76, 97% RA Treatment: IV antibiotics ID Consult: Sepsis POA Antibiotics: Zithromycin and Vancomycin Is there an additional diagnosis that is clinically appropriate for this patient? [ ] Sepsis, present on admission [ ] Sepsis, developed during stay, not present on admission [ ] Sepsis ruled out [ ] Other, please specify [ ] Unable to determine SIRS Criteria: 2 or more of the following may indicate SIRS Temperature < 96.8F (36C) or > 101.0F (38.3C) Heart Rate > 90 bpm Respiratory Rate > 20 breaths/min or PaCO2 < 32 mmHg White Blood Cell Count > 12,000 or < 4,000 cells/mm3 or > 10% bands MTDD
--- NOTE | 2023-05-14 12:35 | CDI ---
Documentation Clarification Form Date: 05/14/2023 12:30:52 PM From: Donna Sifuentes Admit Date: 05/08/2023 12:01:00 AM Patient Name: Asha Rivera Visit Number: [id number] Discharge Date: 05/10/2023 04:10:00 PM ATTENTION: The Clinical Documentation Specialists (CDI) and [facility] Coding Staff appreciate your assistance in clarifying documentation. Please respond to the clarification below the line at the bottom and electronically sign. The CDI & [facility] Coding staff will review the response and follow-up if needed. Please note: Queries are made part of the Legal Health Record. If you have any questions, please contact the author of this message via ITS. Dr. Andres Blevins Patient with diabetes and cellulitis of leg. Please clarify if there is a relationship between diabetes and cellulitis. History/Risk Factors: Patient with diabetes and cellulitis Clinical Indicators: Treatment: Vancomycin and Zithromax Please clarify the relationship, if any, which is clinically appropriate for this patient: [ ] Left leg cellulitis is due to diabetes. [ ] Left leg cellulitis is not due to diabetes. [ ] Other explanation of clinical findings (please specify) [ ] Unable to determine (no explanation for clinical findings) MTDD
--- NOTE | 2023-05-15 15:28 | DS ---
DISCHARGE SUMMARY CHIEF COMPLAINT: Cellulitis of the left lower leg. HISTORY OF PRESENT ILLNESS AND PHYSICAL EXAMINATION: Details of this lady's history and physical can be found in the initial workup. LABORATORY STUDIES: While she was in the hospital, she had laboratory studies, details of which can be found in the laboratory section of her chart. COURSE IN THE HOSPITAL: After admission, she was placed on bedrest, started on intravenous fluids, and started on IV antibiotics. The cellulitis was improving. However, she did have some induration in the mid anterior lower legs, and there was a question of whether or not there could be an abscess. She was anxious to be discharged and agreed to come into the office the next day. She will go home on light activity, elevation of the leg, and antibiotics and come in tomorrow, and if it develops more fluctuance, it will be opened in the office. FINAL DIAGNOSIS: Cellulitis of the left leg. OPERATIONS: None. CONSULTATION: Vascular Surgery. RACHEL / MICHAELN: [id number] /
[2023-05-22] MEDS ORDERED: ERGOCALCIFEROL 1,250 MCG (50,000 IU) CAPSULE PO SCH (09:00)
--- NOTE | 2023-07-26 22:42 | MISC ---
MISCELLANOUS REPORT Sepsis, ruled out. Asha Rivera has left leg cellulitis, not due to diabetes. MMODL / IJN: [id number] /
--- NOTE | 2023-07-27 17:37 | MISC ---
MISCELLANOUS REPORT Sepsis ruled out. MMODL / IJN: [id number] /
--- NOTE | 2023-07-27 17:37 | MISC ---
MISCELLANOUS REPORT Left leg cell cellulitis, not due to diabetes. MMODL / IJN: [id number] /
--- NOTE | 2023-07-30 01:24 | MISC ---
MISCELLANOUS REPORT Sepsis, ruled out. MMODL / IJN: [id number] /
--- NOTE | 2023-07-30 01:24 | MISC ---
MISCELLANOUS REPORT Leg cellulitis, not due to diabetes. MMODL / IJN: [id number] /
== END 2023-05-10 16:10 | disposition home or self-care (01) | DRG 383 ==
LOC: EC 19:52 → 1SOBS 05-08 00:01 → 4SSUR 05-09 15:37
PROVIDERS: ADMIT Family Medicine; ATTEND Family Medicine
DX: L03.116 Cellulitis of left lower limb (principal); E87.6 Hypokalemia; G43.909 Migraine, unspecified, not intractable, without status migrainosus; Z28.310 Unvaccinated for COVID-19; R74.01 Elevation of levels of liver transaminase levels; Z71.3 Dietary counseling and surveillance; F11.11 Opioid abuse, in remission; J45.909 Unspecified asthma, uncomplicated; E11.9 Type 2 diabetes mellitus without complications; Z79.4 Long term (current) use of insulin; Z79.84 Long term (current) use of oral hypoglycemic drugs; F17.290 Nicotine dependence, other tobacco product, uncomplicated; W55.03XA Scratched by cat, initial encounter; S80.212A Abrasion, left knee, initial encounter; Z79.51 Long term (current) use of inhaled steroids; Z79.899 Other long term (current) drug therapy
CPT/HCPCS: 36415; 80048; 80053; 80202; 82565; 83036; 83605; 85025; 87040; 96361; 96365; 96375; 99285

== ENCOUNTER 2024-03-22 09:36 | Emergency (ER) | payer OTHER ==
[2024-03-22 09:44] LABS: Glucose,Whole Blood 510 mg/dL (70-110)
--- NOTE | 2024-03-22 10:06 | ED ---
General Adult HPI - General Chief complaint: Upper Respiratory Infection Stated complaint: NVD Time Seen by Provider: 03/22/24 09:37 Source: patient Mode of arrival: ambulatory Limitations: no limitations - History of Present Illness Initial comments: Dictation was produced using [employer] dictation software. please excuse any grammatical, word or spelling errors. Chief Complaint: 43-year-old diabetic female presents to the ER for respiratory infectious symptoms History of Present Illness: Patient is a 43-year-old female she states that she is here for 5 days of respiratory infectious symptoms. She has been exposed to people at work who have been sick. Patient states that her sugar was high she did not take her insulin this morning. She states that her sugar is high because she had a lot of popsicles last night. She has been having a cough that has been productive of green sputum. Denies any pain complaints. States that she has also been having green drainage coming from her nose for approximately week and a half. The ROS documented in this emergency department record has been reviewed and confirmed by me. Those systems with pertinent positive or negative responses have been documented in the HPI. All other systems are other negative and/or noncontributory. - Related Data Home Medications Medication Instructions Recorded Confirmed Albuterol Inhaler [Ventolin Hfa 2 puff INHALATION RT-QID PRN 12/25/19 05/07/23 Inhaler] Ergocalciferol [Vitamin D2 50,000 unit PO Q30D 12/25/19 05/07/23 (DRISDOL)] Ibuprofen [Motrin] 800 mg PO BID PRN 12/25/19 05/07/23 Budesonide/Formoterol Fumarate 2 puff INHALATION RT-BID 05/07/23 05/07/23 [Symbicort 160-4.5 Mcg Inhaler] Dulaglutide [Trulicity] 4.5 mg SQ FR 05/07/23 05/07/23 Empagliflozin [Jardiance] 25 mg PO DAILY 05/07/23 05/07/23 Gabapentin [Neurontin] 800 mg PO TID 05/07/23 05/07/23 INSULIN LISPRO (HumaLOG) [humaLOG] 12 units SQ BID PRN 05/07/23 05/07/23 Insulin Glargine,Hum.rec.anlog 62 units SQ DAILY 05/07/23 05/07/23 [Lantus Solostar Pen] lisinopriL [Zestril] 5 mg PO DAILY 05/07/23 05/07/23 Methadone [Dolophine] 78 mg PO DAILY 05/08/23 05/10/23 Previous Rx's Medication Instructions Recorded Amoxic-Pot Clav 875-125Mg 1 each PO Q12HR #30 tab 05/09/23 [Augmentin 875-125] Insulin Detemir (Levemir) [Levemir] 70 unit SQ DAILY@0700 30 Days #1 05/10/23 pen Amoxic-Pot Clav 875-125Mg 1 tab PO BID 10 Days #20 tab 03/22/24 [Augmentin 875-125] Allergies Allergy/AdvReac Type Severity Reaction Status Date / Time No Known Allergies Allergy Verified 05/07/23 22:14 Review of Systems ROS Statement: Those systems with pertinent positive or pertinent negative responses have been documented in the HPI. ROS Other: All systems not noted in ROS Statement are negative. 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 Cardiovascular: Heart regular rate and rhythm Chest: Able to complete full sentences, no retractions, no tachypnea, rhonchi to the left lower lung base Abdomen: abdomen soft, non-tender, non-distended, no organomegaly Musculoskeletal: Pulses present and equal in all extremities, no peripheral edema Motor: no focal deficits noted Neurological: CN II-XII grossly intact, no focal motor or sensory deficits noted Skin: Intact with no visualized rashes Psych: Normal affect and mood Limitations: no limitations Course Vital Signs 03/22/24 03/22/24 03/22/24 09:42 13:12 14:57 Temperature 98 F Pulse Rate 91 79 84 Respiratory 20 18 16 Rate Blood Pressure 134/80 101/75 109/72 O2 Sat by Pulse 95 96 92 L Oximetry Medical Decision Making - Medical Decision Making Was pt. sent in by a medical professional or institution (, PA, EXPERIMENTAL ROCKET SLED MECHANIC, urgent care, hospital, or halfway...) When possible be specific @ -No Did you speak to anyone other than the patient for history (EMS, parent, family, police, friend...)? What history was obtained from this source @ -No Did you review nursing and triage notes (agree or disagree)? Why? @ -I reviewed and agree with nursing and triage notes Were old charts reviewed (outside hosp., previous admission, EMS record, old EKG, old radiological studies, urgent care reports/EKG's, halfway records)? Report findings @ -No old charts were reviewed Differential Diagnosis (chest pain, altered mental status, abdominal pain women, abdominal pain men, vaginal bleeding, musculoskeletal, weakness, fever, dyspnea, syncope, headache, dizziness, GI bleed, back pain, seizure, CVA, palpatations, mental health)? @ -Pneumonia, sinusitis, COVID, strep pharyngitis EKG interpreted by me (3pts min.). @ -None done X-rays interpreted by me (1pt min.). @ -X-ray is nonacute CT interpreted by me (1pt min.). @ -None done U/S interpreted by me (1pt. min.). @ -None done What testing was considered but not performed or refused? (CT, X-rays, U/S, labs)? Why? @ -None What meds were considered but not given or refused? Why? @ -None Was smoking cessation discussed for >3mins.? @ -No Were there social determinants of health that impacted care today? How? (Homelessness, low income, unemployed, alcoholism, drug addiction, transportation, low edu. Level, literacy, decrease access to med. care, assisted, rehab)? @ -No Was there de-escalation of care discussed even if they declined (Discuss DNR or withdrawal of care, Hospice)? DNR status @ -No What co-morbidities impacted this encounter? (DM, HTN, Smoking, COPD, CAD, Cancer, CVA, ARF, Chemo, Hep., AIDS, mental health diagnosis, sleep apnea, morbid obesity)? @ -None Was patient admitted / discharged? Hospital course, mention meds given and route, prescriptions, significant lab abnormalities, going to OR and other pertinent info. @ -43-year-old female clinical presentation consistent with rhinosinusitis. Vital signs stable. Labs shows hyperglycemia. Patient given IV fluids and insulin to manage her blood sugar. Swabs are negative. Chest x-ray is nonacute. Patient a prescription for Augmentin for treatment of rhinosinusitis. Patient discharged. Did you discuss the management of the patient with other professionals (professionals i.e. , PA, EXPERIMENTAL ROCKET SLED MECHANIC, lab, RT, psych nurse, sr. social media & mobile manager, doctor osteopathic, teacher, corporate banking officer, case maker)? Give summary @ -No Was critical care preformed (if so, how long)? @ -No Undiagnosed new problem with uncertain prognosis? @ -No Drug Therapy requiring intensive monitoring for toxicity (Heparin, Nitro, Insulin, Cardizem)? @ -No Were any procedures done? @ -No Diagnosis/symptom? Acute, or Chronic, or Acute on Chronic? Uncomplicated (without systemic symptoms) or Complicated (systemic symptoms)? @ -Bacterial sinusitis Side effects of treatment? @ -No Exacerbation, Progression, or Severe Exacerbation? @ -No Poses a threat to life or bodily function? How? (Chest pain, [place], AR, pneumonia, PE, COPD, DKA, ARF, appy, cholecystitis, CVA, Diverticulitis, Homicidal, Suicidal, threat to staff... and all critical care pts) @ -No - Lab Data Result diagrams: 03/22/24 10:00 03/22/24 10:00 Lab Results 03/22/24 03/22/24 03/22/24 Range/Units 09:42 10:00 10:00 WBC 8.2 (3.8-10.6) k/uL RBC 5.72 H (3.80-5.40) m/uL Hgb 15.1 (11.4-16.0) gm/dL Hct 47.1 H (34.0-46.0) % MCV 82.3 (80.0-100.0) fL MCH 26.5 (25.0-35.0) pg MCHC 32.1 (31.0-37.0) g/dL RDW 13.6 (11.5-15.5) % Plt Count (150-450) k/uL MPV 11.1 Neutrophils % 68 % Lymphocytes % 21 % Monocytes % 6 % Eosinophils % 3 % Basophils % 1 % Neutrophils # 5.6 (1.3-7.7) k/uL Lymphocytes # 1.8 (1.0-4.8) k/uL Monocytes # 0.5 (0-1.0) k/uL Eosinophils # 0.2 (0-0.7) k/uL Basophils # 0.1 (0-0.2) k/uL Manual Slide Review Performed RBC Morphology Normal Sodium 133 L (137-145) mmol/L Potassium 5.4 H (3.5-5.1) mmol/L Chloride 96 L (98-107) mmol/L Carbon Dioxide 27 (22-30) mmol/L Anion Gap 10 mmol/L BUN 7 (7-17) mg/dL Creatinine 0.42 L (0.52-1.04) mg/dL Est GFR (CKD-EPI)AfAm >90 (>60 ml/min/1.73 sqM) Est GFR (CKD-EPI)NonAf >90 (>60 ml/min/1.73 sqM) Glucose 506 H* (74-99) mg/dL POC Glucose (mg/dL) 510 H* (70-110) mg/dL POC Glu Wig Stylist Jeffrey Quinn Calcium 9.5 (8.4-10.2) mg/dL Influenza Type A (PCR) (Not Detectd) Influenza Type B (PCR) (Not Detectd) RSV (PCR) (Not Detectd) SARS-CoV-2 (PCR) (Not Detectd) Group A Strep (PCR) (Not Detectd) 03/22/24 03/22/24 03/22/24 Range/Units 10:00 10:08 13:12 WBC (3.8-10.6) k/uL RBC (3.80-5.40) m/uL Hgb (11.4-16.0) gm/dL Hct (34.0-46.0) % MCV (80.0-100.0) fL MCH (25.0-35.0) pg MCHC (31.0-37.0) g/dL RDW (11.5-15.5) % Plt Count (150-450) k/uL MPV Neutrophils % % Lymphocytes % % Monocytes % % Eosinophils % % Basophils % % Neutrophils # (1.3-7.7) k/uL Lymphocytes # (1.0-4.8) k/uL Monocytes # (0-1.0) k/uL Eosinophils # (0-0.7) k/uL Basophils # (0-0.2) k/uL Manual Slide Review RBC Morphology Sodium (137-145) mmol/L Potassium (3.5-5.1) mmol/L Chloride (98-107) mmol/L Carbon Dioxide (22-30) mmol/L Anion Gap mmol/L BUN (7-17) mg/dL Creatinine (0.52-1.04) mg/dL Est GFR (CKD-EPI)AfAm (>60 ml/min/1.73 sqM) Est GFR (CKD-EPI)NonAf (>60 ml/min/1.73 sqM) Glucose (74-99) mg/dL POC Glucose (mg/dL) 414 H (70-110) mg/dL POC Glu Wig Stylist ID Kim, Karlie Calcium (8.4-10.2) mg/dL Influenza Type A (PCR) Not Detected (Not Detectd) Influenza Type B (PCR) Not Detected (Not Detectd) RSV (PCR) Not Detected (Not Detectd) SARS-CoV-2 (PCR) Not Detected (Not Detectd) Group A Strep (PCR) NOT DETECTED (Not Detectd) 03/22/24 Range/Units 14:44 WBC (3.8-10.6) k/uL RBC (3.80-5.40) m/uL Hgb (11.4-16.0) gm/dL Hct (34.0-46.0) % MCV (80.0-100.0) fL MCH (25.0-35.0) pg MCHC (31.0-37.0) g/dL RDW (11.5-15.5) % Plt Count (150-450) k/uL MPV Neutrophils % % Lymphocytes % % Monocytes % % Eosinophils % % Basophils % % Neutrophils # (1.3-7.7) k/uL Lymphocytes # (1.0-4.8) k/uL Monocytes # (0-1.0) k/uL Eosinophils # (0-0.7) k/uL Basophils # (0-0.2) k/uL Manual Slide Review RBC Morphology Sodium (137-145) mmol/L Potassium (3.5-5.1) mmol/L Chloride (98-107) mmol/L Carbon Dioxide (22-30) mmol/L Anion Gap mmol/L BUN (7-17) mg/dL Creatinine (0.52-1.04) mg/dL Est GFR (CKD-EPI)AfAm (>60 ml/min/1.73 sqM) Est GFR (CKD-EPI)NonAf (>60 ml/min/1.73 sqM) Glucose (74-99) mg/dL POC Glucose (mg/dL) 338 H (70-110) mg/dL POC Glu Wig Stylist ID Karlie Kim Calcium (8.4-10.2) mg/dL Influenza Type A (PCR) (Not Detectd) Influenza Type B (PCR) (Not Detectd) RSV (PCR) (Not Detectd) SARS-CoV-2 (PCR) (Not Detectd) Group A Strep (PCR) (Not Detectd) Disposition Clinical Impression: Sinusitis Disposition: HOME SELF-CARE Condition: Good Instructions (If sedation given, give patient instructions): Sinusitis (ED) Prescriptions: Amoxic-Pot Clav 875-125Mg [Augmentin 875-125] 1 tab PO BID 10 Days #20 tab Is patient prescribed a controlled substance at d/c from ED?: No Referrals: Andres Blevins MD [Primary Care Provider] - 1-2 days Time of Disposition: 15:03
[2024-03-22 10:44] LABS: African American GFR (CKD) >90 (>60 ml/min/1.73 sqM); Anion Gap 10 mmol/L; Blood Urea Nitrogen 7 mg/dL (7-17); Calcium 9.5 mg/dL (8.4-10.2); Carbon Dioxide 27 mmol/L (22-30); Chloride 96 mmol/L (98-107); Non-African American GFR(CKD) >90 (>60 ml/min/1.73 sqM); Sodium 133 mmol/L (137-145)
[2024-03-22] MEDS: SODIUM CHLORIDE 0.9% 1,000 ML IV STA (10:48)
[2024-03-22 10:59] LABS: Glucose 506 mg/dL (74-99); Potassium 5.4 mmol/L (3.5-5.1)
[2024-03-22 11:01] LABS: Basophils # (A) 0.1 k/uL (0-0.2); Basophils % (A) 1 %; Eosinophils # (A) 0.2 k/uL (0-0.7); Eosinophils % (A) 3 %; HCT 47.1 % (34.0-46.0); HGB 15.1 gm/dL (11.4-16.0); Lymphocytes # (A) 1.8 k/uL (1.0-4.8); Lymphocytes % (A) 21 %; MCH 26.5 pg (25.0-35.0); MCHC 32.1 g/dL (31.0-37.0); MCV 82.3 fL (80.0-100.0); Mean Platelet Volume 11.1; Monocytes # (A) 0.5 k/uL (0-1.0); Monocytes % (A) 6 %; Neutrophils # (A) 5.6 k/uL (1.3-7.7); Neutrophils % (A) 68 %; RBC 5.72 m/uL (3.80-5.40); RDW 13.6 % (11.5-15.5); WBC 8.2 k/uL (3.8-10.6)
[2024-03-22 11:44] LABS: RBC Morphology Normal
--- NOTE | 2024-03-22 11:59 | XR ---
EXAMINATION TYPE: XR chest 2V DATE OF EXAM: 03/22/2024 10:59 AM CLINICAL INDICATION:Female, 43 years old with history of cough; [facility] COMPARISON: 08/14/2021 TECHNIQUE: XR chest 2V. Frontal and lateral views of the chest.. FINDINGS: Lines/Tubes/Devices: No indwelling lines are seen. Heart/mediastinum: Heart size is normal. Mediastinum appears normal. Pulmonary vascularity: Not increased, Lungs/Pleura: There is no evidence of pleural effusion, focal consolidation, or pneumothorax. Mild s trandy perihilar opacities likely scarring. Calcified granulomas may be present, especially in the ri ght hilar region. Musculoskeletal: No acute osseous abnormality demonstrated in the limits of the exam. Mild degenerat lisseth changes. Other findings: None. IMPRESSION: No acute cardiopulmonary abnormality.
[2024-03-22 13:14] LABS: Glucose,Whole Blood 414 mg/dL (70-110)
[2024-03-22] MEDS: INSULIN REGULAR 100 UNIT/ML VIAL (IV) IV ONE ×2 (13:14→14:56)
[2024-03-22 14:46] LABS: Glucose,Whole Blood 338 mg/dL (70-110)
[2024-03-22 15:00] VITALS: RESP 16
[2024-03-22 15:24] VITALS: BP 120/64; PULSE 91; TEMP 97.7
== END 2024-03-22 15:25 | disposition home or self-care (01) ==
LOC: EC 09:36
DX: J32.9 Chronic sinusitis, unspecified (principal); F17.290 Nicotine dependence, other tobacco product, uncomplicated
CPT/HCPCS: 36415; 71046; 80048; 85025; 87636; 87651; 96360; 96361; 99284

== ENCOUNTER 2024-07-19 04:58 | Emergency (ER) | payer OTHER ==
[2024-07-19] MEDS: ONDANSETRON ODT 8 MG TAB.RAPDIS PO STA (05:34)
[2024-07-19] MEDS: SODIUM CHLORIDE 0.9% 1,000 ML IV ONE ×2 (05:51→07:31)
[2024-07-19] MEDS: diphenhydrAMINE 50 MG/ML 1 ML VIAL IVP STA (05:51)
[2024-07-19] MEDS: MORPHINE SULFATE 4 MG/ML SYRINGE IVP STA ×2 (05:54→07:58)
--- NOTE | 2024-07-19 05:57 | ED ---
General Adult HPI - General Source: patient Mode of arrival: EMS Limitations: no limitations <Ally Nuñez - Last Filed: 07/19/24 07:11> <Crow Puentes - Last Filed: 07/19/24 07:59> - General Chief complaint: Alcohol Stated complaint: Nausea, Vomiting Time Seen by Provider: 07/19/24 05:09 - History of Present Illness Initial comments: Patient is a 43-year-old female past medical history alcoholism, and recovery presenting today for nausea, vomiting abdominal pain 1 day after binge drinking. Patient states that she relapsed again drank 3 pints of alcohol. This morning woke up at 3 AM with severe nausea vomiting abdominal pain as well as a headache. States she usually gets headaches after drinking large amounts of alcohol. Emesis is nonbloody nonbilious. No black or bloody stools, no diarrhea. No prior abdominal surgeries. No dysuria or hematuria. No fevers, chills, chest pain or shortness of breath. No numbness or weakness. (Ally Nuñez) - Related Data Home Medications Medication Instructions Recorded Confirmed Albuterol Inhaler [Ventolin Hfa 2 puff INHALATION RT-QID PRN 12/25/19 05/07/23 Inhaler] Ergocalciferol [Vitamin D2 50,000 unit PO Q30D 12/25/19 05/07/23 (DRISDOL)] Ibuprofen [Motrin] 800 mg PO BID PRN 12/25/19 05/07/23 Budesonide/Formoterol Fumarate 2 puff INHALATION RT-BID 05/07/23 05/07/23 [Symbicort 160-4.5 Mcg Inhaler] Dulaglutide [Trulicity] 4.5 mg SQ FR 05/07/23 05/07/23 Empagliflozin [Jardiance] 25 mg PO DAILY 05/07/23 05/07/23 Gabapentin [Neurontin] 800 mg PO TID 05/07/23 05/07/23 INSULIN LISPRO (HumaLOG) [humaLOG] 12 units SQ BID PRN 05/07/23 05/07/23 Insulin Glargine,Hum.rec.anlog 62 units SQ DAILY 05/07/23 05/07/23 [Lantus Solostar Pen] lisinopriL [Zestril] 5 mg PO DAILY 05/07/23 05/07/23 Methadone [Dolophine] 78 mg PO DAILY 05/08/23 05/10/23 Previous Rx's Medication Instructions Recorded Amoxic-Pot Clav 875-125Mg 1 each PO Q12HR #30 tab 05/09/23 [Augmentin 875-125] Insulin Detemir (Levemir) [Levemir] 70 unit SQ DAILY@0700 30 Days #1 05/10/23 pen Amoxic-Pot Clav 875-125Mg 1 tab PO BID 10 Days #20 tab 03/22/24 [Augmentin 875-125] Allergies Allergy/AdvReac Type Severity Reaction Status Date / Time No Known Allergies Allergy Verified 07/19/24 05:06 Review of Systems ROS Other: All systems not noted in ROS Statement are negative. <Ally Nuñez - Last Filed: 07/19/24 07:11> ROS Other: All systems not noted in ROS Statement are negative. <Crow Puentes - Last Filed: 07/19/24 07:59> ROS Statement: Those systems with pertinent positive or pertinent negative responses have been documented in the HPI. Past Medical History Past Medical History: Asthma, Diabetes Mellitus Additional Past Medical History / Comment(s): migraines History of Any Multi-Drug Resistant Organisms: None Reported Past Surgical History: No Surgical Hx Reported Additional Past Surgical History / Comment(s): hx of IV drug use- 2 years clean Additional Past Anesthesia/Blood Transfusion Reaction / Comment(s): unknown Past Psychological History: No Psychological Hx Reported Smoking Status: Vaper Past Alcohol Use History: None Reported Past Drug Use History: None Reported <Ally Nuñez - Last Filed: 07/19/24 07:11> General Exam Limitations: no limitations <Ally Nuñez - Last Filed: 07/19/24 07:11> - General Exam Comments Initial Comments: PE: CONSTITUTIONAL: No apparent distress, appearing though uncomfortable SKIN: Warm, dry, no jaundice, hives or petechiae EYES: Pupils are equally round, extraocular movements intact without nystagmus, clear conjunctiva, non-icteric sclera HENT: Normocephalic, atraumatic, moist mucus membranes, oropharynx clear without exudates NECK: , Full range of motion, normal appearance PULMONARY: Scant wheezes mid lung arnold bilaterally, otherwise no rhonchi, or rales, normal excursion, no accessory muscle use and no stridor CARDIOVASCULAR: Regular rate, rhythm, normal S1 and S2. No appreciated murmurs, rubs or gallops. Strong radial pulses with intact distal perfusion. No lower extremity edema GASTROINTESTINAL: Soft, active bowel sounds throughout, diffusely tender, non- distended, no palpable masses, no rebound; guarding with palpation throughout. No hepatosplenomegaly GENITOURINARY: MUSCULOSKELETAL: Extremities have no gross deformity, no edema, redness, or swelling. No calf swelling NEUROLOGIC:_a/o x 3, GCS 15, normal mentation and speech. Moves all extremities x 4 without motor or sensory deficit PSYCHIATRIC:_tearfulmood and affect, thought process is clear and linear (Ally Nuñez) Course Vital Signs 07/19/24 07/19/24 05:00 07:28 Temperature 98.2 F 98.7 F Pulse Rate 109 H 96 Respiratory 18 16 Rate Blood Pressure 124/93 132/79 O2 Sat by Pulse 93 L 98 Oximetry EKG Findings - EKG Comments: EKG Findings:: Sinus rhythm, rate 89 bpm, ID interval 133 ms, QRS duration milliseconds, QT/QTc 398/445 ms, no ST elevations or depressions, no arrhythmia <Ally Nuñez - Last Filed: 07/19/24 07:11> Medical Decision Making - Lab Data Result diagrams: 07/19/24 05:45 07/19/24 05:45 <Ally Nuñez - Last Filed: 07/19/24 07:11> - Lab Data Result diagrams: 07/19/24 05:45 07/19/24 05:45 <Crow Puentes - Last Filed: 07/19/24 07:59> - Medical Decision Making Was pt. sent in by a medical professional or institution (, PA, CORE DRILLING SUPERVISOR, urgent care, hospital, or [facility]...) When possible be specific @ -[No] Did you speak to anyone other than the patient for history (EMS, parent, family, police, friend...)? What history was obtained from this source @ -[No] Did you review nursing and triage notes (agree or disagree)? Why? @ -[I reviewed and agree with nursing and triage notes] Were old charts reviewed (outside hosp., previous admission, EMS record, old EKG, old radiological studies, urgent care reports/EKG's, [facility] records)? Report findings @ -Medical records reviewed Differential Diagnosis (chest pain, altered mental status, abdominal pain women, abdominal pain men, vaginal bleeding, weakness, fever, dyspnea, syncope, headache, dizziness, GI bleed, back pain, seizure, CVA, palpatations, mental h ealth, musculoskeletal)? @ -Differential Abdominal Pain Women: Appendicitis, Cholecystitis, diverticulosis, ischemic bowel, pancreatitis, hepatitis, UTI, gastroenteritis, AAA, incarcerated hernia, bowel obstruction, constipation, inflammatory bowel, hepatitis, peptic ulcer disease, splenic infarction, perforated viscus, vulvitis, ovarian torsion, PID, kidney stone, placenta abruption, this is not meant to be an all-inclusive list EKG interpreted by me (3pts min.). @ -[As above] X-rays interpreted by me (1pt min.). @ -[None done] CT interpreted by me (1pt min.). @ -[None done] U/S interpreted by me (1pt. min.). @ -[None done] What testing was considered but not performed or refused? (CT, X-rays, U/S, labs)? Why? none What meds were considered but not given or refused? Why? @ -[None] Did you discuss the management of the patient with other professionals (professionals i.e. , PA, CORE DRILLING SUPERVISOR, lab, RT, psych nurse, social service director, harpsichord maker, teacher, consumer loan officer, case managers)? Give summary @ -[No] Was smoking cessation discussed for >3mins.? @ -[No] Was critical care preformed (if so, how long)? @ -[No] Were there social determinants of health that impacted care today? How? (Homelessness, low income, unemployed, alcoholism, drug addiction, transportation, low edu. Level, literacy, decrease access to med. care, snf, rehab)? @Methadone dependence, alcoholism Was there de-escalation of care discussed even if they declined (Discuss DNR or withdrawal of care, Hospice)? @ -[No] What co-morbidities impacted this encounter? (DM, HTN, Smoking, COPD, CAD, Cancer, CVA, ARF, Chemo, Hep., AIDS, mental health diagnosis, sleep apnea, morbid obesity)? @ -[Diabetes, asthma Was patient admitted / discharged? Hospital course, mention meds given and route, prescriptions, significant lab abnormalities, going to OR and other pertinent info. @ -[hospital course] Patient is a 43-year-old female past med history diabetes, Abbed asthma, methadone dependence, alcoholism, presenting today for nausea vomiting abdominal pain 1 day after binge drinking. On my assessment patient is overall well-appe aring, no acute distress though uncomfortable. Tearful. Abdomen is diffusely tender, with active bowel sounds nondistended and soft. No palpable masses. Lungs have scant wheezes bilaterally, patient does states she has asthma no increased shortness of breath or normal. No lower extremity edema. She denies being well-perfused. Discussed with patient plan for IV fluids, nausea control, pain control EKG blood work. Patient agreeable plan Labs and imaging reviewed. Grossly within normal limits. Abnormal values not concerning for acute pathology related to presenting complaint. Assessment patient does endorse some improvement in pain and nausea however does continue to endorse pain. Ported Tyle, Toradol for headache, Compazine, additional dose morphine, GI cocktail. Patient agreeable with plan Undiagnosed new problem with uncertain prognosis? @ -[No] Drug Therapy requiring intensive monitoring for toxicity (Heparin, Nitro, Insulin, Cardizem)? @ -[No] Were any procedures done? @ -[No] Diagnosis/symptom? @ -[default] Acute, or Chronic, or Acute on Chronic? @ -[default] Uncomplicated (without systemic symptoms) or Complicated (systemic symptoms)? @ -[default] Side effects of treatment? @ -[No] Exacerbation, Progression, or Severe Exacerbation? @ -[No] Poses a threat to life or bodily function? How? (Chest pain, [place], [place], pneumonia, PE, COPD, DKA, ARF, appy, cholecystitis, CVA, Diverticulitis, Homicidal, Suicidal, threat to staff... and all critical care pts) @ -[No] (Ally Nuñez) Patient care signed out to me by previous physician pending reevaluation and determination of disposition. Labs reviewed. Patient well-appearing. Patient given symptomatic treatment and ready be discharged. She is in no acute distress. Patient with a follow-up with primary care doctor. Diagnosis/symptom? @ -Abdominal pain, no high risk features Acute, or Chronic, or Acute on Chronic? @ -Acute Uncomplicated (without systemic symptoms) or Complicated (systemic symptoms)? @ -Uncomplicated Side effects of treatment? @ -None Exacerbation, Progression, or Severe Exacerbation] @ -No Poses a threat to life or bodily function? @ -No (rCow Puentes) - Lab Data Lab Results 07/19/24 07/19/24 07/19/24 Range/Units 05:45 05:45 05:45 WBC 11.4 H (3.8-10.6) k/uL RBC 5.37 (3.80-5.40) m/uL Hgb 14.3 (11.4-16.0) gm/dL Hct 42.6 (34.0-46.0) % MCV 79.4 L (80.0-100.0) fL MCH 26.6 (25.0-35.0) pg MCHC 33.4 (31.0-37.0) g/dL RDW 13.7 (11.5-15.5) % Plt Count 308 (150-450) k/uL MPV 8.0 Neutrophils % 70 % Lymphocytes % 19 % Monocytes % 5 % Eosinophils % 4 % Basophils % 1 % Neutrophils # 8.0 H (1.3-7.7) k/uL Lymphocytes # 2.1 (1.0-4.8) k/uL Monocytes # 0.6 (0-1.0) k/uL Eosinophils # 0.4 (0-0.7) k/uL Basophils # 0.1 (0-0.2) k/uL PT 10.9 (10.0-12.5) sec INR 1.0 (<1.2) APTT 22.2 (22.0-30.0) sec Sodium (137-145) mmol/L Potassium (3.5-5.1) mmol/L Chloride (98-107) mmol/L Carbon Dioxide (22-30) mmol/L Anion Gap mmol/L BUN (7-17) mg/dL Creatinine (0.52-1.04) mg/dL Est GFR (CKD-EPI)AfAm (>60 ml/min/1.73 sqM) Est GFR (CKD-EPI)NonAf (>60 ml/min/1.73 sqM) Glucose (74-99) mg/dL Calcium (8.4-10.2) mg/dL Total Bilirubin (0.2-1.3) mg/dL AST (14-36) U/L ALT (4-34) U/L Alkaline Phosphatase (38-126) U/L Total Protein (6.3-8.2) g/dL Albumin (3.5-5.0) g/dL Amylase (30-110) U/L Lipase (23-300) U/L Urine Color Colorless Urine Appearance Clear (Clear) Urine pH 6.0 (5.0-8.0) Ur Specific [place] 1.010 (1.001-1.035) Urine Protein Negative (Negative) Urine Glucose (UA) Negative (Negative) Urine Ketones Negative (Negative) Urine Blood Trace H (Negative) Urine Nitrite Negative (Negative) Urine Bilirubin Negative (Negative) Urine Urobilinogen <2.0 (<2.0) mg/dL Ur Leukocyte Esterase Large H (Negative) Urine RBC 18 H (0-5) /hpf Urine WBC 41 H (0-5) /hpf Ur Squamous Epith Cells 1 (0-4) /hpf Hyaline Casts 1 (0-2) /lpf Urine Mucus Occasional H (None) /hpf Urine HCG, Qual (Not Detectd) 07/19/24 07/19/24 Range/Units 05:45 05:45 WBC (3.8-10.6) k/uL RBC (3.80-5.40) m/uL Hgb (11.4-16.0) gm/dL Hct (34.0-46.0) % MCV (80.0-100.0) fL MCH (25.0-35.0) pg MCHC (31.0-37.0) g/dL RDW (11.5-15.5) % Plt Count (150-450) k/uL MPV Neutrophils % % Lymphocytes % % Monocytes % % Eosinophils % % Basophils % % Neutrophils # (1.3-7.7) k/uL Lymphocytes # (1.0-4.8) k/uL Monocytes # (0-1.0) k/uL Eosinophils # (0-0.7) k/uL Basophils # (0-0.2) k/uL PT (10.0-12.5) sec INR (<1.2) APTT (22.0-30.0) sec Sodium 141 (137-145) mmol/L Potassium 4.4 (3.5-5.1) mmol/L Chloride 106 (98-107) mmol/L Carbon Dioxide 22 (22-30) mmol/L Anion Gap 13 mmol/L BUN 16 (7-17) mg/dL Creatinine 0.52 (0.52-1.04) mg/dL Est GFR (CKD-EPI)AfAm >90 (>60 ml/min/1.73 sqM) Est GFR (CKD-EPI)NonAf >90 (>60 ml/min/1.73 sqM) Glucose 182 H (74-99) mg/dL Calcium 9.4 (8.4-10.2) mg/dL Total Bilirubin 0.6 (0.2-1.3) mg/dL AST 50 H (14-36) U/L ALT 34 (4-34) U/L Alkaline Phosphatase 76 (38-126) U/L Total Protein 8.4 H (6.3-8.2) g/dL Albumin 4.7 (3.5-5.0) g/dL Amylase 94 (30-110) U/L Lipase 58 (23-300) U/L Urine Color Urine Appearance (Clear) Urine pH (5.0-8.0) Ur Specific [place] (1.001-1.035) Urine Protein (Negative) Urine Glucose (UA) (Negative) Urine Ketones (Negative) Urine Blood (Negative) Urine Nitrite (Negative) Urine Bilirubin (Negative) Urine Urobilinogen (<2.0) mg/dL Ur Leukocyte Esterase (Negative) Urine RBC (0-5) /hpf Urine WBC (0-5) /hpf Ur Squamous Epith Cells (0-4) /hpf Hyaline Casts (0-2) /lpf Urine Mucus (None) /hpf Urine HCG, Qual Not Detected (Not Detectd) Disposition <Ally Nuñez - Last Filed: 07/19/24 07:11> Is patient prescribed a controlled substance at d/c from ED?: No Time of Disposition: 07:59 <Crow Puentes - Last Filed: 07/19/24 07:59> Clinical Impression: Abdominal pain Disposition: HOME SELF-CARE Condition: Good Instructions (If sedation given, give patient instructions): Abdominal Pain (ED) Referrals: Andres Blevins MD [Primary Care Provider] - 1-2 days
[2024-07-19 06:07] LABS: Basophils # (A) 0.1 k/uL (0-0.2); Basophils % (A) 1 %; Eosinophils # (A) 0.4 k/uL (0-0.7); Eosinophils % (A) 4 %; HCT 42.6 % (34.0-46.0); HGB 14.3 gm/dL (11.4-16.0); Lymphocytes # (A) 2.1 k/uL (1.0-4.8); Lymphocytes % (A) 19 %; MCH 26.6 pg (25.0-35.0); MCHC 33.4 g/dL (31.0-37.0); MCV 79.4 fL (80.0-100.0); Monocytes # (A) 0.6 k/uL (0-1.0); Monocytes % (A) 5 %; Neutrophils % (A) 70 %; Platelet Count 308 k/uL (150-450); RBC 5.37 m/uL (3.80-5.40); RDW 13.7 % (11.5-15.5); WBC 11.4 k/uL (3.8-10.6)
[2024-07-19 06:25] LABS: Appearance,Urine Clear (Clear); Bilirubin,Urine Negative (Negative); Blood,Urine Trace (Negative); Color,Urine Colorless; Glucose,Urine (UA) Negative (Negative); Hyaline Casts,Urine 1 /lpf (0-2); Ketones,Urine Negative (Negative); Leukocyte Esterase,Urine Large (Negative); Mucus,Urine Occasional /hpf; Nitrite,Urine Negative (Negative); Protein,Urine Negative (Negative); RBC,Urine 18 /hpf (0-5); Squamous Epithelial Cell,Urine 1 /hpf (0-4); Urobilinogen,Urine <2.0 mg/dL (<2.0); WBC,Urine 41 /hpf (0-5)
[2024-07-19 06:27] LABS: ALT 34 U/L (4-34); AST 50 U/L (14-36); African American GFR (CKD) >90 (>60 ml/min/1.73 sqM); Albumin 4.7 g/dL (3.5-5.0); Alkaline Phosphatase 76 U/L (38-126); Amylase 94 U/L (30-110); Anion Gap 13 mmol/L; Blood Urea Nitrogen 16 mg/dL (7-17); Calcium 9.4 mg/dL (8.4-10.2); Carbon Dioxide 22 mmol/L (22-30); Chloride 106 mmol/L (98-107); Glucose 182 mg/dL (74-99); Lipase 58 U/L (23-300); Non-African American GFR(CKD) >90 (>60 ml/min/1.73 sqM); Potassium 4.4 mmol/L (3.5-5.1); Sodium 141 mmol/L (137-145); Total Bilirubin 0.6 mg/dL (0.2-1.3); Total Protein 8.4 g/dL (6.3-8.2)
[2024-07-19 06:28] LABS: Partial Thromboplastin Time 22.2 sec (22.0-30.0); Prothrombin Time 10.9 sec (10.0-12.5)
[2024-07-19 07:30] VITALS: BP 132/79; PULSE 96; RESP 16; TEMP 98.7
[2024-07-19] MEDS: ACETAMINOPHEN TAB 500 MG TAB PO STA (07:31)
[2024-07-19] MEDS: MAG HYDROX/AL HYDROX/SIMETH 30 ML, HYOSCYAMINE ELIXIR 10 ML, LIDOCAINE VISCOUS 2% 10 ML PO STA (07:32)
[2024-07-19] MEDS: FAMOTIDINE 20 MG/2 ML VIAL IV STA (07:33)
[2024-07-19] MEDS: PROCHLORPERAZINE INJ 10 MG/2 ML VIAL IVP STA (07:35)
[2024-07-19] MEDS: KETOROLAC 15 MG/ML 1 ML VIAL IVP STA (07:35)
== END 2024-07-19 08:06 | disposition home or self-care (01) ==
LOC: EC 04:58
DX: R10.9 Unspecified abdominal pain (principal); F17.290 Nicotine dependence, other tobacco product, uncomplicated
CPT/HCPCS: 36415; 93005; 80053; 82150; 83690; 85025; 85610; 85730; 81001; 81025; 87086; 99284; 96374; 96375; 96361 ×2; J2270; J1200; J0780; J3490; J1885

== ENCOUNTER 2024-08-27 00:05 | Emergency (ER) | payer OTHER ==
--- NOTE | 2024-08-27 00:39 | ED ---
Upper Extremity HPI - General Chief Complaint: Extremity Injury, Upper Stated Complaint: Rt Shoulder Pain - [facility] Time Seen by Provider: 08/27/24 00:37 Source: patient, RN notes reviewed Mode of arrival: ambulatory Limitations: no limitations - History of Present Illness Initial Comments: 43-year-old female presenting to the ER for evaluation of right shoulder pain. 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 She continued to work through the discomfort. She states she was able to go to bed after taking ibuprofen. She states she was able to go to work yesterday with no symptoms. Today while at work she had an increase in symptoms under the right shoulder blade. She describes it as a stabbing sensation. Reports minor radiation to chest. She does report shortness of breath and discomfort. Denies history of blood clots, blood thinner use, recent travel. Patient does vape. No control. Patient also reports recent URI symptoms but denies fevers. Denies known cardiac history. Patient is a diabetic. No other complaints. - Related Data Home Medications Medication Instructions Recorded Confirmed Albuterol Inhaler [Ventolin Hfa 2 puff INHALATION RT-QID PRN 12/25/19 05/07/23 Inhaler] Ergocalciferol [Vitamin D2 50,000 unit PO Q30D 12/25/19 05/07/23 (DRISDOL)] Ibuprofen [Motrin] 800 mg PO BID PRN 12/25/19 05/07/23 Budesonide/Formoterol Fumarate 2 puff INHALATION RT-BID 05/07/23 05/07/23 [Symbicort 160-4.5 Mcg Inhaler] Dulaglutide [Trulicity] 4.5 mg SQ FR 05/07/23 05/07/23 Empagliflozin [Jardiance] 25 mg PO DAILY 05/07/23 05/07/23 Gabapentin [Neurontin] 800 mg PO TID 05/07/23 05/07/23 INSULIN LISPRO (HumaLOG) [humaLOG] 12 units SQ BID PRN 05/07/23 05/07/23 Insulin Glargine,Hum.rec.anlog 62 units SQ DAILY 05/07/23 05/07/23 [Lantus Solostar Pen] lisinopriL [Zestril] 5 mg PO DAILY 05/07/23 05/07/23 Methadone [Dolophine] 78 mg PO DAILY 05/08/23 05/10/23 Previous Rx's Medication Instructions Recorded Amoxic-Pot Clav 875-125Mg 1 each PO Q12HR #30 tab 05/09/23 [Augmentin 875-125] Insulin Detemir (Levemir) [Levemir] 70 unit SQ DAILY@0700 30 Days #1 05/10/23 pen Amoxic-Pot Clav 875-125Mg 1 tab PO BID 10 Days #20 tab 03/22/24 [Augmentin 875-125] Cyclobenzaprine [Flexeril] 10 mg PO TID PRN #15 tab 08/27/24 Allergies Allergy/AdvReac Type Severity Reaction Status Date / Time No Known Allergies Allergy Verified 08/27/24 00:09 Review of Systems ROS Statement: Those systems with pertinent positive or pertinent negative responses have been documented in the HPI. ROS Other: All systems not noted in ROS Statement are negative. 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 Absent: respiratory distress, wheezes, rales, rhonchi, stridor Cardiovascular Exam: Present: regular rate, normal rhythm, normal heart sounds. Absent: systolic murmur, diastolic murmur, rubs, gallop, clicks Extremities exam: Present: normal inspection, full ROM, normal capillary refill. Absent: tenderness, pedal edema, joint swelling, calf tenderness Back exam: Present: normal inspection Neurological exam: Present: alert, oriented X3, CN II-XII intact Skin exam: Present: warm, dry, intact, normal color. Absent: rash Course Vital Signs 08/27/24 08/27/24 00:05 03:01 Temperature 98.4 F 97.7 F Pulse Rate 94 68 Respiratory 18 19 Rate Blood Pressure 139/74 127/80 O2 Sat by Pulse 96 98 Oximetry Medical Decision Making - Medical Decision Making Was pt. sent in by a medical professional or institution ([facility] R Feliciano, QA ENGINEER, urgent care, hospital, or intermediate...) When possible be specific @ -No Did you speak to anyone other than the patient for history (EMS, parent, family, police, friend...)? What history was obtained from this source @ -No Did you review nursing and triage notes (agree or disagree)? Why? @ -I reviewed and agree with nursing and triage notes Were old charts reviewed (outside hosp., previous admission, EMS record, old EKG, old radiological studies, urgent care reports/EKG's, intermediate records)? Report findings @ -No old charts were reviewed Differential Diagnosis (chest pain, altered mental status, abdominal pain women, abdominal pain men, vaginal bleeding, weakness, fever, dyspnea, syncope, headache, dizziness, GI bleed, back pain, seizure, CVA, palpatations, mental he alth, musculoskeletal)? @ -Differential Musculoskeletal: Muscular strain, contusion, ligament sprain, fracture, arthritis, septic arthritis, bursitis, cellulitis, muscle spasm, nerve compression, DVT, arterial occlusion, herpes zoster, electrolyte abnormality, tumor.... This is not meant to be in all inclusive list EKG interpreted by me (3pts min.). @ -As above X-rays interpreted by me (1pt min.). @ -[CXR interpreted me negative for acute cardiopulmonary process. Right shoulder x-ray interpreted by me negative for acute fractures or dislocations. CT interpreted by me (1pt min.). @ -None done U/S interpreted by me (1pt. min.). @ -None done What testing was considered but not performed or refused? (CT, X-rays, U/S, labs)? Why? @ -None What meds were considered but not given or refused? Why? @ -None Did you discuss the management of the patient with other professionals (professionals i.e. MARIA R Feliciano, QA ENGINEER, lab, RT, psych nurse, health and social care teacher, director of labor relations, teacher, corporate ethics officer, complex case manager)? Give summary @ -No Was smoking cessation discussed for >3mins.? @ -No Was critical care preformed (if so, how long)? @ -No Were there social determinants of health that impacted care today? How? (Homelessness, low income, unemployed, alcoholism, drug addiction, trans portation, low edu. Level, literacy, decrease access to med. care, [facility], rehab)? @ -Patient is a former IV drug user. Was there de-escalation of care discussed even if they declined (Discuss DNR or withdrawal of care, Hospice)? DNR status @ -No What co-morbidities impacted this encounter? (DM, HTN, Smoking, COPD, CAD, Cancer, CVA, ARF, Chemo, Hep., AIDS, mental health diagnosis, sleep apnea, mor bid obesity)? @ -Former IV drug user, diabetes mellitus, asthmae Was patient admitted / discharged? Hospital course, mention meds given and route, prescriptions, significant lab abnormalities, going to OR and other pertinent info. @ -Discharge. 43-year-old female presenting to the ER for evaluation of right shoulder pain with radiation to her chest. History and physical exam completed. Vitals stable. Exam benign. Patient is neurovascularly intact. Given patient's age, comorbidities and complaining of radiation to her chest cardiac workup will be obtained. Laboratory studies showed leukocytosis of 10.8 which is likely related to patient's smoking habits. D-dimer negative at 0.44. Troponin undetectable. Viral swabs negative. X-rays negative. Pain believed to be musculoskeletal in nature. Patient will be prescribed Flexeril and advised to follow-up with PCP. Strict return parameters discussed. Patient discharged in stable condition with follow-up to PCP. Patient verbally expressed understanding and agreement with care plan. Case discussed with ED attending, Lidia Puentes. Undiagnosed new problem with uncertain prognosis? @ -No Drug Therapy requiring intensive monitoring for toxicity (Heparin, Nitro, Insulin, Cardizem)? @ -No Were any procedures done? @ -No Diagnosis/symptom? @ -Shoulder pain Acute, or Chronic, or Acute on Chronic? @ -Acute Uncomplicated (without systemic symptoms) or Complicated (systemic symptoms)? @ -Uncomplicated Side effects of treatment? @ -No Exacerbation, Progression, or Severe Exacerbation? @ -No Poses a threat to life or bodily function? How? (Chest pain, [place], [place], pneumonia, PE, COPD, DKA, ARF, appy, cholecystitis, CVA, Diverticulitis, Homicidal, Suicidal, threat to staff... and all critical care pts) @ -No - Lab Data Result diagrams: 08/27/24 01:36 08/27/24 01:36 Lab Results 08/27/24 08/27/24 08/27/24 Range/Units 01:12 01:36 01:36 WBC 10.8 H (3.8-10.6) k/uL RBC 5.10 (3.80-5.40) m/uL Hgb 13.4 (11.4-16.0) gm/dL Hct 40.7 (34.0-46.0) % MCV 79.9 L (80.0-100.0) fL MCH 26.3 (25.0-35.0) pg MCHC 32.9 (31.0-37.0) g/dL RDW 13.6 (11.5-15.5) % Plt Count 272 (150-450) k/uL MPV 8.1 Neutrophils % 72 % Lymphocytes % 18 % Monocytes % 4 % Eosinophils % 4 % Basophils % 1 % Neutrophils # 7.8 H (1.3-7.7) k/uL Lymphocytes # 1.9 (1.0-4.8) k/uL Monocytes # 0.4 (0-1.0) k/uL Eosinophils # 0.4 (0-0.7) k/uL Basophils # 0.1 (0-0.2) k/uL PT 11.0 (10.0-12.5) sec INR 1.0 (<1.2) APTT 21.6 L (22.0-30.0) sec D-Dimer 0.44 (<0.60) mg/L FEU Sodium (137-145) mmol/L Potassium (3.5-5.1) mmol/L Chloride (98-107) mmol/L Carbon Dioxide (22-30) mmol/L Anion Gap mmol/L BUN (7-17) mg/dL Creatinine (0.52-1.04) mg/dL Est GFR (CKD-EPI)AfAm (>60 ml/min/1.73 sqM) Est GFR (CKD-EPI)NonAf (>60 ml/min/1.73 sqM) Glucose (74-99) mg/dL Calcium (8.4-10.2) mg/dL Total Bilirubin (0.2-1.3) mg/dL AST (14-36) U/L ALT (4-34) U/L Alkaline Phosphatase (38-126) U/L Troponin I (0.000-0.034) ng/mL Total Protein (6.3-8.2) g/dL Albumin (3.5-5.0) g/dL Influenza Type A (PCR) Not Detected (Not Detectd) Influenza Type B (PCR) Not Detected (Not Detectd) RSV (PCR) Not Detected (Not Detectd) SARS-CoV-2 (PCR) Not Detected (Not Detectd) 08/27/24 08/27/24 Range/Units 01:36 01:36 WBC (3.8-10.6) k/uL RBC (3.80-5.40) m/uL Hgb (11.4-16.0) gm/dL Hct (34.0-46.0) % MCV (80.0-100.0) fL MCH (25.0-35.0) pg MCHC (31.0-37.0) g/dL RDW (11.5-15.5) % Plt Count (150-450) k/uL MPV Neutrophils % % Lymphocytes % % Monocytes % % Eosinophils % % Basophils % % Neutrophils # (1.3-7.7) k/uL Lymphocytes # (1.0-4.8) k/uL Monocytes # (0-1.0) k/uL Eosinophils # (0-0.7) k/uL Basophils # (0-0.2) k/uL PT (10.0-12.5) sec INR (<1.2) APTT (22.0-30.0) sec D-Dimer (<0.60) mg/L FEU Sodium 136 L (137-145) mmol/L Potassium 3.8 (3.5-5.1) mmol/L Chloride 104 (98-107) mmol/L Carbon Dioxide 23 (22-30) mmol/L Anion Gap 9 mmol/L BUN 21 H (7-17) mg/dL Creatinine 0.78 (0.52-1.04) mg/dL Est GFR (CKD-EPI)AfAm >90 (>60 ml/min/1.73 sqM) Est GFR (CKD-EPI)NonAf >90 (>60 ml/min/1.73 sqM) Glucose 203 H (74-99) mg/dL Calcium 9.6 (8.4-10.2) mg/dL Total Bilirubin 0.6 (0.2-1.3) mg/dL AST 22 (14-36) U/L ALT 22 (4-34) U/L Alkaline Phosphatase 116 (38-126) U/L Troponin I <0.012 (0.000-0.034) ng/mL Total Protein 7.8 (6.3-8.2) g/dL Albumin 4.5 (3.5-5.0) g/dL Influenza Type A (PCR) (Not Detectd) Influenza Type B (PCR) (Not Detectd) RSV (PCR) (Not Detectd) SARS-CoV-2 (PCR) (Not Detectd) - EKG Data -: EKG Interpreted by Me EKG Comments: EKG at 01: 21 showing a sinus rhythm. No acute ST segment or T wave abnormalities. Ventricular rate 82, NC interval 161, QRS duration 81, QT/QTc 395/433. Disposition Clinical Impression: Shoulder pain Disposition: HOME SELF-CARE Condition: Stable Instructions (If sedation given, give patient instructions): Shoulder Pain (ED) Additional Instructions: Follow-up with PCP. Return to the ER for new or worsening concerns. Prescriptions: Cyclobenzaprine [Flexeril] 10 mg PO TID PRN #15 tab PRN Reason: Muscle Spasm Is patient prescribed a controlled substance at d/c from ED?: No Referrals: Andres Blevins MD [Primary Care Provider] - 1-2 days Time of Disposition: 02:35
[2024-08-27 01:43] LABS: Basophils # (A) 0.1 k/uL (0-0.2); Basophils % (A) 1 %; Eosinophils # (A) 0.4 k/uL (0-0.7); Eosinophils % (A) 4 %; HCT 40.7 % (34.0-46.0); HGB 13.4 gm/dL (11.4-16.0); Lymphocytes # (A) 1.9 k/uL (1.0-4.8); Lymphocytes % (A) 18 %; MCH 26.3 pg (25.0-35.0); MCHC 32.9 g/dL (31.0-37.0); MCV 79.9 fL (80.0-100.0); Mean Platelet Volume 8.1; Monocytes # (A) 0.4 k/uL (0-1.0); Monocytes % (A) 4 %; Neutrophils # (A) 7.8 k/uL (1.3-7.7); Neutrophils % (A) 72 %; Platelet Count 272 k/uL (150-450); RDW 13.6 % (11.5-15.5); WBC 10.8 k/uL (3.8-10.6)
--- NOTE | 2024-08-27 01:52 | XR ---
EXAMINATION TYPE: XR chest 2V DATE OF EXAM: 08/27/2024 CLINICAL HISTORY: Chest pain TECHNIQUE: Frontal and lateral views of the chest are obtained. COMPARISON: Prior chest x-ray March 22, 2024 FINDINGS: There is no focal air space opacity, pleural effusion, or pneumothorax seen. The cardiac silhouette size is stable and within normal limits. The osseous structures are intact. IMPRESSION: No acute process. [facility], , 08/27/2024 1:50 AM
--- NOTE | 2024-08-27 01:53 | XR ---
EXAMINATION TYPE: XR shoulder complete RT DATE OF EXAM: 08/27/2024 CLINICAL HISTORY: Pain TECHNIQUE: Three views of the right shoulder are obtained. COMPARISON: None. FINDINGS: There is no acute fracture/dislocation evident in the right shoulder. The acromioclavicul ar and glenohumeral joint spaces appear within normal limits. The visualized ribs are intact and unr emarkable. IMPRESSION: Unremarkable study. [facility], , 08/27/2024 1:51 AM
[2024-08-27 02:02] LABS: ALT 22 U/L (4-34); AST 22 U/L (14-36); African American GFR (CKD) >90 (>60 ml/min/1.73 sqM); Albumin 4.5 g/dL (3.5-5.0); Alkaline Phosphatase 116 U/L (38-126); Anion Gap 9 mmol/L; Blood Urea Nitrogen 21 mg/dL (7-17); Calcium 9.6 mg/dL (8.4-10.2); Carbon Dioxide 23 mmol/L (22-30); Chloride 104 mmol/L (98-107); Glucose 203 mg/dL (74-99); Non-African American GFR(CKD) >90 (>60 ml/min/1.73 sqM); Potassium 3.8 mmol/L (3.5-5.1); Sodium 136 mmol/L (137-145); Total Bilirubin 0.6 mg/dL (0.2-1.3); Total Protein 7.8 g/dL (6.3-8.2)
[2024-08-27 02:13] LABS: Partial Thromboplastin Time 21.6 sec (22.0-30.0)
[2024-08-27 03:03] VITALS: BP 127/80; PULSE 68; RESP 19; TEMP 97.7
== END 2024-08-27 03:03 | disposition home or self-care (01) ==
LOC: EC 00:05
DX: M25.511 Pain in right shoulder (principal); E11.9 Type 2 diabetes mellitus without complications; J45.909 Unspecified asthma, uncomplicated; F17.290 Nicotine dependence, other tobacco product, uncomplicated
CPT/HCPCS: 36415; 71046; 80053; 84484; 85025; 85379; 85610; 85730; 87636; 93005; 99284